=== PATIENT | female | born 1985 | race Caucasian/White ===

== ENCOUNTER 2016-09-30 20:40 | Inpatient (IN) | payer MEDICAID ==
[~2016-09-30] VITALS: Ht 162.6 cm; Wt 58.6 kg
[~2016-09-30 20:40] MED LIST: BACT800T5 PO; LACTCHW3 PO; METR500T10 PO; PROM25TA5 PO
[2016-09-30 20:48] VITALS: PULSE 87; RESP 16; TEMP 98.2; O2SAT 100
[2016-09-30 21:06] VITALS: BP 96/62; PULSE 88; RESP 18; TEMP 98.2
--- NOTE | 2016-09-30 21:06 | PD ---
HPI Chief Complaint: vomiting Time Seen by Provider: 20:58 Travel History International Travel<30 days: No Contact w/Intl Traveler<30days: No Traveled to known affect area: No History of Present Illness HPI This 31-year-old female is complaining of vomiting. She says she started vomiting around midnight last night. And fairly constant since then. She had some loose stools last night. She has had some frequency of urination. She has had persistent retching and did vomit small amount of blood. PFSH Past Medical History Cancer: No Cardiovascular Problems: No Diminished Hearing: No Endocrine: No Genitourinary: Yes (bladder infection) Immune Disorder: No Musculoskeletal: No Neurologic: No Psychiatric: No Reproductive: Yes (HERPES) Respiratory: No Immunizations Current: Yes : 4 Para: 4 Miscarriage: 0 : 0 Tubal Ligation: Yes (DEC 24, 2008) Past Surgical History Section: Yes Other Surgery: Yes (c section) Social History Alcohol Use: No Tobacco Use: Yes (1/2 pk/day) Substance Use: Yes (marijuana) Allergies-Medications (Allergen,Severity, Reaction): Coded Allergies: No Known Allergies (Verified , 09/30/16) Reported Meds & Prescriptions Reported Meds & Active Scripts Active Bactrim DS (Sulfamethoxazole-Trimethoprim DS) 1 Tab Tab 1 Tab PO BID Phenergan 25 mg (Promethazine HCl) 25 Mg Tab 25 Mg PO Q6H PRN Lactinex (Lactobacillus Acidophilus) Chw 1 Chew PO DAILY Metronidazole 500 Mg Tab 500 Mg PO Q8H 10 Days Review of Systems General / Constitutional: Positive: Chills, No: Fever Eyes: No: Diploplia, Blurred Vision HENT: No: Headaches, Vertigo Cardiovascular: No: Chest Pain or Discomfort, Palpitations Respiratory: No: Cough, Shortness of Breath Gastrointestinal: Positive: Nausea, Vomiting, Diarrhea, No: Constipation Genitourinary: Positive: Frequency, Dysuria Musculoskeletal: No: Myalgias, Arthralgias Skin: No Rash, No Itching Neurologic: Positive: Weakness Psychiatric: No: Anxiety Hematologic/Lymphatic: No: Easy Bruising Physical Exam Narrative GENERAL: Well-developed female SKIN: Focused skin assessment warm/dry. HEAD: Atraumatic. Normocephalic. EYES: Pupils equal and round. No scleral icterus. No injection or drainage. ENT: No nasal bleeding or discharge. Mucous membranes dry NECK: Trachea midline. No JVD. CARDIOVASCULAR: Regular rate and rhythm. No murmur appreciated. RESPIRATORY: No accessory muscle use. Clear to auscultation. Breath sounds equal bilaterally. GASTROINTESTINAL: Abdomen soft, non-tender, nondistended. Hepatic and splenic margins not palpable. MUSCULOSKELETAL: No obvious deformities. No clubbing. No cyanosis. No edema. NEUROLOGICAL: Awake and alert. No obvious cranial nerve deficits. Motor grossly within normal limits. Normal speech. PSYCHIATRIC: Appropriate mood and affect; insight and judgment normal. Data Data Last Documented VS Vital Signs Date Time Temp Pulse Resp B/P Pulse Ox O2 Delivery O2 Flow Rate FiO2 09/30/16 22:07 70 16 97/57 99 Room Air 09/30/16 21:06 98.2 Orders Complete Blood Count With Diff (09/30/16 21:04) Comprehensive Metabolic Panel (09/30/16 21:04) Urinalysis - C+S If Indicated (09/30/16 21:04) Sodium Chlor 0.9% 1000 Ml Inj (Ns 1000 M (09/30/16 21:15) Sodium Chlor 0.9% 1000 Ml Inj (Ns 1000 M (09/30/16 21:15) Ondansetron Inj (Zofran Inj) (09/30/16 21:15) Pantoprazole Inj (Protonix Inj) (09/30/16 21:15) Urine Culture (09/30/16 21:25) Ceftriaxone Inj (Rocephin Inj) (09/30/16 22:00) Ns + Kcl Inj (09/30/16 22:30) Labs Laboratory Tests Test 09/30/16 21:25 White Blood Count 8.5 TH/MM3 Red Blood Count 4.00 MIL/MM3 Hemoglobin 12.5 GM/DL Hematocrit 36.9 % Mean Corpuscular Volume 92.2 FL Mean Corpuscular Hemoglobin 31.3 PG Mean Corpuscular Hemoglobin 34.0 % Concent Red Cell Distribution Width 14.7 % Platelet Count 140 TH/MM3 Mean Platelet Volume 10.3 FL Neutrophils (%) (Auto) 81.1 % Lymphocytes (%) (Auto) 10.5 % Monocytes (%) (Auto) 7.7 % Eosinophils (%) (Auto) 0.1 % Basophils (%) (Auto) 0.6 % Neutrophils # (Auto) 6.8 TH/MM3 Lymphocytes # (Auto) 0.9 TH/MM3 Monocytes # (Auto) 0.7 TH/MM3 Eosinophils # (Auto) 0.0 TH/MM3 Basophils # (Auto) 0.1 TH/MM3 CBC Comment DIFF FINAL Differential Comment Urine Color STACIE Urine Turbidity MOD Urine pH 6.5 Urine Specific [place] 1.027 Urine Protein 30 mg/dL Urine Glucose (UA) NEG mg/dL Urine Ketones 15 mg/dL Urine Occult Blood SMALL Urine Nitrite POS Urine Bilirubin NEG Urine Leukocyte Esterase SMALL Urine RBC 0-3 /hpf Urine WBC 50-99 /hpf Urine WBC Clumps OCC Urine Squamous Epithelial 0-5 /hpf Cells Urine Bacteria MANY /hpf Urine Mucus MOD /lpf Microscopic Urinalysis Comment CULTURE INDICATED Sodium Level 141 MEQ/L Potassium Level 2.6 MEQ/L Chloride Level 102 MEQ/L Carbon Dioxide Level 28.8 MEQ/L Anion Gap 10 MEQ/L Blood Urea Nitrogen 6 MG/DL Creatinine 0.87 MG/DL Estimat Glomerular Filtration 77 ML/MIN Rate Random Glucose 94 MG/DL Calcium Level 8.6 MG/DL Total Bilirubin 1.2 MG/DL Aspartate Amino Transf 23 U/L (AST/SGOT) Alanine Aminotransferase 33 U/L (ALT/SGPT) Alkaline Phosphatase 86 U/L Total Protein 6.5 GM/DL Albumin 3.4 GM/DL [facility] Medical Decision Making Medical Screen Exam Complete: Yes Emergency Medical Condition: Yes Medical Record Reviewed: Yes Differential Diagnosis Differential includes acute gastritis, UTI, Narrative Course Patient had a similar presentation about a year ago which was related to a urinary tract infection. Hemoglobin today is 12.5 with a white count of 8.5. Sodium is 141 with potassium of 2.6. Urinalysis shows 50-99 white cells. She has been given 2 L of fluid and Zofran. She is still complaining of nausea. Patient be admitted for observation. She has ongoing nausea with significant UTI and electrolyte imbalance Diagnosis Primary Impression: UTI (urinary tract infection) Qualified Code: N30.00 - Acute cystitis without hematuria Additional Impressions: Hypokalemia Intractable vomiting Qualified Code: R11.2 - Intractable vomiting with nausea, unspecified vomiting type Richy Chao MD Sep 30, 2016 21:06
[2016-09-30] MEDS ORDERED: PANTOPRAZOLE SODIUM 40 MG VIAL IV PUSH ONE (21:15)
[2016-09-30] MEDS ORDERED: ONDANSETRON HCL 4 MG/2 ML VIAL IV PUSH ONE (21:15)
[2016-09-30] MEDS ORDERED: SODIUM CHLOR 0.9% 1000 ML INJ 1,000 ML IV ONE ×2 (21:15)
[2016-09-30 21:42] LABS: BLOOD, URINE SMALL (NEG); GLUCOSE,URINE NEG (NEG); KETONE, URINE 15 mg/dL (NEG); PH, URINE 6.5 (5.0-8.5)
[2016-09-30 21:48] LABS: AUTOMATED NEUTROPHIL # 6.8 TH/MM3 (1.8-7.7); BASOPHIL # 0.1 TH/MM3 (0-0.2); BASOPHIL % 0.6 % (0.0-2.0); EOSINOPHIL % 0.1 % (0.0-4.0); HEMATOCRIT 36.9 % (35.0-46.0); HEMO FLAGS DIFF FINAL; LYMPH % 10.5 % (9.0-44.0); LYMPHOCYTE # 0.9 TH/MM3 (1.0-4.8); MEAN CELL VOLUME 92.2 FL (80.0-100.0); MEAN CORPUSCULAR HEMOGLOBIN 31.3 PG (27.0-34.0); MONO % 7.7 % (0.0-8.0); NEUT % 81.1 % (16.0-70.0); NITRITE,URINE POS (NEG); PLATELET COUNT 140 TH/MM3 (150-450); RED CELL DISTRIBUTION WIDTH 14.7 % (11.6-17.2); WHITE BLOOD COUNT 8.5 TH/MM3 (4.0-11.0)
[2016-09-30 21:49] LABS: URINE COLOR AMBER (YELLW/STRAW)
[2016-09-30 21:50] LABS: MUCUS URINE MOD /lpf (OCC)
[2016-09-30 21:51] LABS: BACTERIA, URINE MANY /hpf; COMMENT (UR) CULTURE INDICATED; CULTURE IF INDICATED CULTURE INDICATED; RBC, URINE 0-3 /hpf (0-3); SQUAMOUS EPITHELIAL CELL URINE 0-5 /hpf (0-5)
[2016-09-30] MEDS ORDERED: cefTRIAXone INJ 1,000 MG in SODIUM CHLORIDE 0.9% INJ 100 ML IV ONE (22:00)
[2016-09-30 22:07] VITALS: BP 97/57; PULSE 70; RESP 16; O2SAT 99
[2016-09-30 22:11] LABS: ALKALINE PHOSPHATASE 86 U/L (45-117); ALT (GPT) 33 U/L (10-53); ANION GAP 10 MEQ/L (5-15); AST (GOT) 23 U/L (15-37); BICARBONATE 28.8 MEQ/L (21.0-32.0); BLOOD UREA NITROGEN 6 MG/DL (7-18); CHLORIDE 102 MEQ/L (98-107); GLOMERULAR FILTRATION RATE 77 ML/MIN (>89); SODIUM (NA) 141 MEQ/L (136-145); TOTAL BILIRUBIN ADULT 1.2 MG/DL (0.2-1.0)
[2016-09-30 22:15] LABS: POTASSIUM 2.6 MEQ/L (3.5-5.1)
[2016-09-30] MEDS ORDERED: PROCHLORPERAZINE INJ 10 MG/2 ML VIAL IV PUSH ONE (22:30)
[2016-09-30] MEDS ORDERED: SODIUM CHLORIDE 0.9% FLUSH 10 ML FLUSH IV FLUSH PRN (22:30)
[2016-09-30] MEDS ORDERED: LACTULOSE SYRUP 20 GM/30 ML CUP PO PRN (22:30)
[2016-09-30] MEDS ORDERED: NS + KCL 40 MEQ INJ 1,000 ML IV ONE (22:30)
[2016-09-30] MEDS ORDERED: MAGNESIUM HYDROXIDE SUSP 30 ML CUP PO PRN (22:30)
[2016-09-30] MEDS ORDERED: NALOXONE HCL 0.4 MG/ML AMP IV PRN (22:30)
[2016-09-30] MEDS ORDERED: BISACODYL 10 MG SUPP RECTAL PRN (22:30)
[2016-09-30] MEDS ORDERED: ACETAMINOPHEN 325 MG TAB PO PRN (22:30)
[2016-09-30] MEDS ORDERED: SENNOSIDES 8.6 MG TAB PO PRN (22:30)
[2016-09-30 23:10] VITALS: BP 94/49; PULSE 63; RESP 16; O2SAT 97
[2016-10-01] VITALS (8 sets, daily range): BP systolic 92–121; BP diastolic 48–68; PULSE 46–72; RESP 16–20; TEMP 97.8–98.7; O2SAT 95–100
[2016-10-01 06:56] LABS: BICARBONATE 30.6 MEQ/L (21.0-32.0); MAGNESIUM 1.6 MG/DL (1.5-2.5); POTASSIUM 3.4 MEQ/L (3.5-5.1)
[2016-10-01 07:10] LABS: CALCIUM-PROTEIN CORRECTED 8.6 MG/DL (8.5-10.1)
--- NOTE | 2016-10-01 08:12 | HHI.HP ---
[facility] No Primary Care Physician Admission Diagnosis UTI, HYPOKALEMIA, INTRACTABLE VOMITING Diagnoses: (1) Nausea & vomiting Diagnosis: Principal (2) Hypokalemia Diagnosis: Principal (3) Urinary tract infection Diagnosis: Principal Chief Complaint: Nausea vomiting Travel History International Travel<30 Days: No Contact w/Intl Traveler <30 Da: No Traveled to Known Affected Are: No History of Present Illness Written by Colt Kinney, acting as scribe for Dr. Alicia on 10/01/16 at 8: 30. This note was transcribed by scribAkira MCGILL. I, Dr. Darlin Alicia personally performed the history, physical exam, and medical decision making; and confirmed the accuracy of the information in the transcribed note. Authenticated by Dr. Darlin Alicia on 10/01/16 at 8:30. 31-year-old female with no chronic medical illnesses who presented to hospital because of intractable nausea vomiting. Patient is known to the hospital for previous admission for same condition a year ago. 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 She went out Saturday night to a concert and she had 3 alcoholic beverages and then at midnight she started having nausea vomiting and she left the concert and went home. She had intractable nausea vomiting was unable to keep anything down so she came to the hospital for evaluation. Patient had workup done emergency department and found to have urinary tract infection, hypokalemia with intractable nausea vomiting. It was requested by ER physician the patient be admitted for further evaluation and management. Upon evaluating the patient this morning she appears to be improved, she is drinking water and abner maya and has not had any recurrent vomiting since 1:30 AM. Review of Systems Gastrointestinal: COMPLAINS OF: Nausea, Vomiting Except as stated in HPI: all other systems reviewed are Neg Past Family Social History Past Medical History History of cystitis Marijuana abuse Past Surgical History 2 Tubal ligation Reported Medications Patient is not taking any outpatient medications Allergies: Coded Allergies: No Known Allergies (Verified , 09/30/16) Family History Reviewed is significant for grandmother having breast cancer, grandfather with lung cancer. Social History Patient does smoke a half a pack a cigarettes a day since she was 21 years old. She does smoke marijuana every other day. She does drink alcohol occasionally. Physical Exam Vital Signs Vital Signs Date Time Temp Pulse Resp B/P Pulse Ox O2 Delivery O2 Flow Rate FiO2 10/01/16 04:00 97.8 58 18 92/56 98 10/01/16 02:33 98.7 72 18 101/59 100 10/01/16 01:57 97.8 71 18 97/60 98 10/01/16 00:20 63 16 100/48 96 Room Air 09/30/16 23:10 63 16 94/49 97 Room Air 09/30/16 22:07 70 16 97/57 99 Room Air 09/30/16 21:10 16 09/30/16 21:06 98.2 88 18 96/62 09/30/16 20:48 98.2 87 16 100 Physical Exam GENERAL: Well-developed, well-nourished, in no acute distress. alert and orientated HEENT: Head is normocephalic without any lesions or masses noted. Facial features are symmetric. Eyes: Pupils equal round reactive to light. Extraocular muscles are intact. Conjunctivae were clear. Oropharyngeal: Pharynx without any erythema edema. Tongue is midline without deviation. Buccal mucosa is moist without any masses or lesions NECK: Supple without any masses. Trachea midline no deviation. No JVD, no bruits are appreciated CARDIAC: Regular rhythm, regular rate. S1/S2 are heard. No murmurs gallops or rubs. LUNGS: Clear to auscultation bilaterally. No wheeze, rhonchi or rales. No use of accessory muscles on inspiration or expiration. ABDOMEN: Soft, nontender. Nondistended. Bowel sounds heard in all 4 quadrants. No organomegaly or masses. Negative rebound, negative guarding EXTREMITIES: No edema, pulses are equal bilaterally. No cyanosis or clubbing NEUROLOGY: Mood and affect appear appropriate. Cranial nerves II through XII grossly intact. Muscle strength 5/5 in upper and lower extremities bilaterally. Deep tendon reflexes are 2+ in upper and lower extremities bilaterally. Laboratory Laboratory Tests Test 09/30/16 10/01/16 21:25 05:30 White Blood Count 8.5 Red Blood Count 4.00 Hemoglobin 12.5 Hematocrit 36.9 Mean Corpuscular Volume 92.2 Mean Corpuscular Hemoglobin 31.3 Mean Corpuscular Hemoglobin 34.0 Concent Red Cell Distribution Width 14.7 Platelet Count 140 Mean Platelet Volume 10.3 Neutrophils (%) (Auto) 81.1 Lymphocytes (%) (Auto) 10.5 Monocytes (%) (Auto) 7.7 Eosinophils (%) (Auto) 0.1 Basophils (%) (Auto) 0.6 Neutrophils # (Auto) 6.8 Lymphocytes # (Auto) 0.9 Monocytes # (Auto) 0.7 Eosinophils # (Auto) 0.0 Basophils # (Auto) 0.1 CBC Comment DIFF FINAL Differential Comment Urine Color STACIE Urine Turbidity MOD Urine pH 6.5 Urine Specific [place] 1.027 Urine Protein 30 Urine Glucose (UA) NEG Urine Ketones 15 Urine Occult Blood SMALL Urine Nitrite POS Urine Bilirubin NEG Urine Leukocyte Esterase SMALL Urine RBC 0-3 Urine WBC 50-99 Urine WBC Clumps OCC Urine Squamous Epithelial 0-5 Cells Urine Bacteria MANY Urine Mucus MOD Microscopic Urinalysis Comment CULTURE INDICATED Sodium Level 141 148 Potassium Level 2.6 3.4 Chloride Level 102 111 Carbon Dioxide Level 28.8 30.6 Anion Gap 10 6 Blood Urea Nitrogen 6 6 Creatinine 0.87 0.75 Estimat Glomerular Filtration 77 91 Rate Random Glucose 94 88 Calcium Level 8.6 7.4 Total Bilirubin 1.2 Aspartate Amino Transf 23 (AST/SGOT) Alanine Aminotransferase 33 (ALT/SGPT) Alkaline Phosphatase 86 Total Protein 6.5 5.0 Albumin 3.4 Protein Corrected Calcium 8.6 Magnesium Level 1.6 Date/Time Procedure Status Source Growth 09/30/16 21:25 Urine Culture Received Urine Clean Catch Pending Result Diagram: 09/30/16212410/01/16 3877 Assessment and Plan Assessment and Plan Nausea, vomiting, intractable Etiology unclear, could be secondary to systemic infection, marijuana use Continue IV fluids Continue Zofran, Reglan as needed Continue clear liquid diet, advance diet as tolerated Urinary tract infection Await cultures for further recommendations Patient started on Rocephin IV daily Hypokalemia, secondary from GI loss continue monitor replete as needed Thrombocytopenia, appears to be chronic Continue to monitor DVT prevention Sequential compression devices Physician Certification 2 Midnight Certification Type: Admission for Inpatient Services Order for Inpatient Services The services are ordered in accordance with Medicare regulations or non- Medicare payer requirements, as applicable. In the case of services not specified as inpatient-only, they are appropriately provided as inpatient services in accordance with the 2-midnight benchmark. Estimated LOS (days): 2 days is the estimated time the patient will need to remain in the hospital, assuming treatment plan goals are met and no additional complications. Post-Hospital Plan: Not yet determined Problem Qualifiers (1) Nausea & vomiting: Qualified Code: R11.2 - Intractable vomiting with nausea, unspecified vomiting type (2) Urinary tract infection: Colt Kinney Oct 01, 2016 08:12 Darlin Alicia MD Oct 01, 2016 08:30
[2016-10-01] MEDS ORDERED: MAGNESIUM SULFATE 1 GM PREMIX 100 ML IV ONE (09:00)
[2016-10-01] MEDS: SODIUM CHLORIDE 0.9% FLUSH 10 ML FLUSH IV FLUSH SCH ×2 (09:16→21:31)
[2016-10-01] MEDS: NS + KCL 20 MEQ INJ 1,000 ML IV SCH ×2 (09:17→21:31)
[2016-10-01] MEDS: METOCLOPRAMIDE HCL 10 MG/2 ML VIAL IV PUSH PRN (11:33)
[2016-10-01] MEDS: PROMETHAZINE INJ 25 MG/ML VIAL IM PRN (13:26)
[2016-10-01] MEDS: NICOTINE 21 MG/24 HR PATCH T-DERMAL SCH (16:57)
[2016-10-01 18:24] LABS: BICARBONATE 30.5 MEQ/L (21.0-32.0)
[2016-10-01 18:53] LABS: CALCIUM-PROTEIN CORRECTED 8.5 MG/DL (8.5-10.1)
[2016-10-01] MEDS: cefTRIAXone INJ 1,000 MG in SODIUM CHLORIDE 0.9% INJ 100 ML IV SCH (21:31)
[2016-10-02] VITALS: BP 125/70; PULSE 42; RESP 20; TEMP 98.3; O2SAT 99
[2016-10-02] MEDS: METOCLOPRAMIDE HCL 10 MG/2 ML VIAL IV PUSH PRN (02:35)
[2016-10-02] MEDS: ONDANSETRON HCL 4 MG/2 ML VIAL IVP PRN ×2 (03:09→09:33)
[2016-10-02] MEDS ORDERED: MORPHINE SULFATE 8 MG/ML INJ IV PUSH ONE (03:15)
[2016-10-02] MEDS: PROMETHAZINE INJ 25 MG/ML VIAL IM PRN ×3 (03:55→22:48)
[2016-10-02 08:00] VITALS: BP 115/65; PULSE 52; RESP 18; TEMP 99.2; O2SAT 100
[2016-10-02 08:47] LABS: AUTOMATED NEUTROPHIL # 8.3 TH/MM3 (1.8-7.7); BASOPHIL # 0.2 TH/MM3 (0-0.2); BASOPHIL % 1.8 % (0.0-2.0); EOSINOPHIL % 0.1 % (0.0-4.0); HEMATOCRIT 33.5 % (35.0-46.0); HEMO FLAGS DIFF FINAL; LYMPH % 5.4 % (9.0-44.0); LYMPHOCYTE # 0.5 TH/MM3 (1.0-4.8); MEAN CELL VOLUME 92.9 FL (80.0-100.0); MEAN CORPUSCULAR HEMOGLOBIN 30.1 PG (27.0-34.0); MEAN CORPUSCULAR HGB CONC 32.4 % (32.0-36.0); MONO % 1.2 % (0.0-8.0); NEUT % 91.5 % (16.0-70.0); PLATELET COUNT 114 TH/MM3 (150-450); RED BLOOD COUNT 3.61 MIL/MM3 (4.00-5.30); RED CELL DISTRIBUTION WIDTH 14.8 % (11.6-17.2); WHITE BLOOD COUNT 9.1 TH/MM3 (4.0-11.0)
[2016-10-02] MEDS: NS + KCL 20 MEQ INJ 1,000 ML IV SCH ×2 (08:50→21:50)
[2016-10-02 09:00] LABS: BICARBONATE 27.9 MEQ/L (21.0-32.0); MAGNESIUM 1.6 MG/DL (1.5-2.5)
[2016-10-02] MEDS: REMOVE OLD PATCH T-DERMAL SCH (09:00)
[2016-10-02 09:06] LABS: POTASSIUM 2.8 MEQ/L (3.5-5.1)
[2016-10-02] MEDS: NICOTINE 21 MG/24 HR PATCH T-DERMAL SCH (09:33)
[2016-10-02] MEDS: SODIUM CHLORIDE 0.9% FLUSH 10 ML FLUSH IV FLUSH SCH ×2 (09:34→21:50)
[2016-10-02] MEDS: MAGNESIUM SULFATE 1 GM PREMIX 100 ML IV SCH ×2 (09:41→11:00)
[2016-10-02] MEDS: POTASSIUM CHLOR 20 MEQ PREMIX 100 ML IV SCH ×3 (10:05→14:00)
--- NOTE | 2016-10-02 10:17 | HHI.PR ---
Subjective Remarks Patient is not able to keep anything down, even small sips of water. She has intractable nausea and vomiting. Says emesis is clear /yellow no blood in it. Has chills, no fevers. Has associated diffuse abdominal pain. Had 2 normal BM today, no diarrhea or constipation, normal color stool. No urinary complaints. Objective Vitals Vital Signs Date Time Temp Pulse Resp B/P Pulse Ox O2 Delivery O2 Flow Rate FiO2 10/02/16 08:00 99.2 52 18 115/65 100 10/02/16 00:00 98.3 42 20 125/70 99 10/01/16 20:00 97.8 61 20 121/58 98 10/01/16 16:00 98.6 62 18 101/68 95 10/01/16 12:00 98.6 46 18 96/64 98 I/O 10/01/16 10/01/16 10/01/16 10/02/16 10/02/16 10/02/16 07:00 15:00 23:00 07:00 15:00 23:00 Intake Total 2150 ml 460 ml 240 ml 892 ml Output Total 0 ml Balance 2150 ml 460 ml 240 ml 892 ml Intake Oral 50 ml 360 ml 240 ml 120 ml IV Total 2100 ml 100 ml 772 ml Output Urine Total 0 ml # Voids 2 1 1 # Bowel Movements 0 Result Diagram: 10/02/1683410/02/1635 Objective Remarks GENERAL: Well-developed, well-nourished, in no acute distress. alert and orientated CARDIAC: Regular rhythm, regular rate. S1/S2 are heard. No murmurs gallops or rubs. LUNGS: Clear to auscultation bilaterally. No wheeze, rhonchi or rales. No use of accessory muscles on inspiration or expiration. ABDOMEN: Soft, nontender. Nondistended. Bowel sounds heard in all 4 quadrants. No organomegaly or masses. Negative rebound, negative guarding EXTREMITIES: No edema, pulses are equal bilaterally. No cyanosis or clubbing NEUROLOGY: Mood and affect appear appropriate. Cranial nerves II through XII grossly intact. Muscle strength 5/5 in upper and lower extremities bilaterally. Deep tendon reflexes are 2+ in upper and lower extremities bilaterally. A/P Problem List: (1) Nausea & vomiting ICD Code: R11.2 Status: Acute (2) Hypokalemia ICD Code: E87.6 Status: Acute (3) Urinary tract infection ICD Code: N39.0 Status: Acute Assessment and Plan Nausea, vomiting, intractable Etiology unclear, could be secondary to systemic infection, marijuana use Continue IV fluids Continue Zofran, Reglan, Phenergan as needed Continue clear liquid diet, advance diet as tolerated Consult GI as patient with persistent N/V not relived by antiemetics so far. Urinary tract infection Await cultures for further recommendations Patient started on Rocephin IV daily Hypokalemia, secondary from GI loss Continue monitor replete as needed Thrombocytopenia, appears to be chronic Continue to monitor DVT prevention Sequential compression devices Discussed with the patient, nurse, family at bedside Problem Qualifiers (1) Nausea & vomiting: Qualified Code: R11.2 - Intractable vomiting with nausea, unspecified vomiting type (2) Urinary tract infection: Darlin Alicia MD Oct 02, 2016 10:16
[2016-10-02 12:00] VITALS: BP 129/84; PULSE 54; RESP 16; TEMP 99.6; O2SAT 100
[2016-10-02] MEDS ORDERED: METOCLOPRAMIDE HCL 10 MG/2 ML VIAL IV PUSH PRN (12:00)
[2016-10-02 16:00] VITALS: BP 115/72; PULSE 61; RESP 16; TEMP 100.1; O2SAT 100
[2016-10-02] MEDS ORDERED: MAGNESIUM SULFATE 1 GM PREMIX 100 ML IV SCH (18:00)
[2016-10-02 20:00] VITALS: BP 137/93; PULSE 73; RESP 18; TEMP 99.8; O2SAT 100
[2016-10-02] MEDS: cefTRIAXone INJ 1,000 MG in SODIUM CHLORIDE 0.9% INJ 100 ML IV SCH (21:50)
[2016-10-03] VITALS: BP 130/73; PULSE 77; RESP 16; TEMP 99.4; O2SAT 99
[2016-10-03 04:00] VITALS: BP 123/85; PULSE 62; RESP 18; TEMP 99.2; O2SAT 99
[2016-10-03] MEDS: PROMETHAZINE INJ 25 MG/ML VIAL IM PRN ×3 (05:04→18:45)
[2016-10-03 06:10] LABS: AUTOMATED NEUTROPHIL # 5.5 TH/MM3 (1.8-7.7); BASOPHIL % 0.4 % (0.0-2.0); EOSINOPHIL % 0.7 % (0.0-4.0); HEMATOCRIT 35.4 % (35.0-46.0); HEMO FLAGS DIFF FINAL; LYMPH % 18.2 % (9.0-44.0); LYMPHOCYTE # 1.3 TH/MM3 (1.0-4.8); MEAN CELL VOLUME 95.9 FL (80.0-100.0); MEAN CORPUSCULAR HGB CONC 32.4 % (32.0-36.0); MONO % 4.8 % (0.0-8.0); NEUT % 75.9 % (16.0-70.0); PLATELET COUNT 112 TH/MM3 (150-450); RED BLOOD COUNT 3.69 MIL/MM3 (4.00-5.30); RED CELL DISTRIBUTION WIDTH 14.6 % (11.6-17.2); WHITE BLOOD COUNT 7.1 TH/MM3 (4.0-11.0)
[2016-10-03 06:14] LABS: POTASSIUM 3.1 MEQ/L (3.5-5.1)
[2016-10-03 06:17] LABS: BICARBONATE 29.2 MEQ/L (21.0-32.0); MAGNESIUM 2.1 MG/DL (1.5-2.5)
--- NOTE | 2016-10-03 07:54 | HHI.PR ---
Subjective Remarks Still with intractable nausea and vomiting multiple times, not able to keep anything down. Has associated chills no fever. Has also loose stools. Complaints of abdominal pain , diffuse. No problems with urination. Objective Vitals Vital Signs Date Time Temp Pulse Resp B/P Pulse Ox O2 Delivery O2 Flow Rate FiO2 10/03/16 04:00 99.2 62 18 123/85 99 10/03/16 00:00 99.4 77 16 130/73 99 10/02/16 20:00 99.8 73 18 137/93 100 10/02/16 16:00 100.1 61 16 115/72 100 10/02/16 12:00 99.6 54 16 129/84 100 10/02/16 08:00 99.2 52 18 115/65 100 I/O 10/02/16 10/02/16 10/02/16 10/03/16 10/03/16 10/03/16 07:00 15:00 23:00 07:00 15:00 23:00 Intake Total 892 ml 2696 ml 280 ml 772 ml Output Total 750 ml Balance 892 ml 1946 ml 280 ml 772 ml Intake Oral 120 ml 60 ml 280 ml IV Total 772 ml 2636 ml 772 ml Emesis 750 ml # Voids 1 1 1 # Bowel Movements 0 Result Diagram: 10/03/1635 10/03/16534 Objective Remarks GENERAL: Well-developed, well-nourished, in no acute distress. alert and orientated CARDIAC: Regular rhythm, regular rate. S1/S2 are heard. No murmurs gallops or rubs. LUNGS: Clear to auscultation bilaterally. No wheeze, rhonchi or rales. No use of accessory muscles on inspiration or expiration. ABDOMEN: Soft, nontender. Nondistended. Bowel sounds heard in all 4 quadrants. No organomegaly or masses. Negative rebound, negative guarding EXTREMITIES: No edema, pulses are equal bilaterally. No cyanosis or clubbing NEUROLOGY: Mood and affect appear appropriate. Cranial nerves II through XII grossly intact. Muscle strength 5/5 in upper and lower extremities bilaterally. Deep tendon reflexes are 2+ in upper and lower extremities bilaterally. A/P Problem List: (1) Nausea & vomiting ICD Code: R11.2 Status: Acute (2) Hypokalemia ICD Code: E87.6 Status: Acute (3) Urinary tract infection ICD Code: N39.0 Status: Acute Assessment and Plan Nausea, vomiting, intractable Abdominal pain Etiology unclear, could be secondary to systemic infection, marijuana use Continue IV fluids. Patient with intractable nausea and vomiting, severe electrolytes abnormalities. On 0.9 NS with KCL 20 mEq, monitor closely electrolytes. Continue Zofran, Reglan, Phenergan as needed Continue clear liquid diet, advance diet as tolerated Start IV dilaudid 0.5 mg q4 hrs prn as patient with abdominal pain . GI was consulted as patient with persistent N/V not relived by antiemetics so far. GI recommends poss EGD Give piridoxine IV viatamin Urinary tract infection. E coli resistant to cipro Await cultures for further recommendations Patient on Rocephin IV daily Hypokalemia, secondary from GI loss, persistent hypokalemia dispite NS with KCl . Will give additional bolus IV KCl 40 mEq Continue monitor replete as needed Thrombocytopenia, appears to be chronic Continue to monitor DVT prevention Sequential compression devices Discussed with the patient, nurse, family at bedside Problem Qualifiers (1) Nausea & vomiting: Qualified Code: R11.2 - Intractable vomiting with nausea, unspecified vomiting type (2) Urinary tract infection: Darlin Alicia MD Oct 03, 2016 07:54
[2016-10-03 08:00] VITALS: BP 116/83; PULSE 86; RESP 16; TEMP 99.4; O2SAT 96
[2016-10-03] MEDS ORDERED: MAGNESIUM OXIDE 400 MG TAB PO ONE (08:00)
[2016-10-03] MEDS: NICOTINE 21 MG/24 HR PATCH T-DERMAL SCH (08:24)
[2016-10-03] MEDS: SODIUM CHLORIDE 0.9% FLUSH 10 ML FLUSH IV FLUSH SCH ×2 (08:31→21:00)
[2016-10-03] MEDS: REMOVE OLD PATCH T-DERMAL SCH (08:31)
[2016-10-03] MEDS: NS + KCL 20 MEQ INJ 1,000 ML IV SCH ×2 (08:32→20:35)
[2016-10-03] MEDS: CALCIUM CARBONATE 500 MG CHEWABLE TAB CHEW SCH ×2 (09:11→21:00)
[2016-10-03] MEDS: POTASSIUM CHLOR 20 MEQ PREMIX 100 ML IV SCH ×2 (09:11→11:18)
[2016-10-03] MEDS: MAGNESIUM OXIDE 400 MG TAB PO SCH (09:13)
[2016-10-03] MEDS: SODIUM CHLOR 0.9% 1000 ML INJ 1,000 ML IV SCH ×2 (11:18→22:10)
[2016-10-03] MEDS ORDERED: PYRIDOXINE HCL 100 MG/ML VIAL IV ONE ×2 (14:15→17:00)
[2016-10-03] MEDS: ONDANSETRON HCL 4 MG/2 ML VIAL IVP PRN (14:50)
[2016-10-03] MEDS: HYDROmorphone HCL PF 1 MG/ML VIAL IV PUSH PRN ×2 (14:50→19:00)
[2016-10-03 16:00] VITALS: BP 122/82; PULSE 82; RESP 16; TEMP 98; O2SAT 98
[2016-10-03] MEDS ORDERED: LIDOCAINE VISCOUS 2% SOLN 15 ML UDC SWISH-SPIT PRN (17:45)
[2016-10-03 20:00] VITALS: BP 127/89; PULSE 69; RESP 18; TEMP 98.5; O2SAT 98
[2016-10-03] MEDS: SUCRALFATE 1 GM/10 ML CUP PO SCH (21:00)
[2016-10-03] MEDS: cefTRIAXone INJ 1,000 MG in SODIUM CHLORIDE 0.9% INJ 100 ML IV SCH ×2 (22:00→22:52)
[2016-10-04] VITALS: BP 124/70; PULSE 68; RESP 16; TEMP 99; O2SAT 97
[2016-10-04] MEDS: PROMETHAZINE INJ 25 MG/ML VIAL IM PRN ×3 (01:34→21:28)
[2016-10-04] MEDS: HYDROmorphone HCL PF 1 MG/ML VIAL IV PUSH PRN ×4 (01:44→21:27)
[2016-10-04 04:00] VITALS: BP 112/79; PULSE 67; RESP 16; TEMP 98.4; O2SAT 96
[2016-10-04 06:08] LABS: AUTOMATED NEUTROPHIL # 3.1 TH/MM3 (1.8-7.7); BASOPHIL % 0.8 % (0.0-2.0); EOSINOPHIL # 0.1 TH/MM3 (0-0.4); EOSINOPHIL % 1.6 % (0.0-4.0); HEMATOCRIT 31.5 % (35.0-46.0); HEMO FLAGS DIFF FINAL; LYMPH % 34.1 % (9.0-44.0); LYMPHOCYTE # 1.8 TH/MM3 (1.0-4.8); MEAN CORPUSCULAR HEMOGLOBIN 31.5 PG (27.0-34.0); MEAN CORPUSCULAR HGB CONC 33.5 % (32.0-36.0); MONO % 6.3 % (0.0-8.0); NEUT % 57.2 % (16.0-70.0); PLATELET COUNT 108 TH/MM3 (150-450); RED BLOOD COUNT 3.35 MIL/MM3 (4.00-5.30); RED CELL DISTRIBUTION WIDTH 14.1 % (11.6-17.2); WHITE BLOOD COUNT 5.3 TH/MM3 (4.0-11.0)
[2016-10-04 06:18] LABS: POTASSIUM 3.3 MEQ/L (3.5-5.1)
[2016-10-04] MEDS: SUCRALFATE 1 GM/10 ML CUP PO SCH ×4 (06:26→21:00)
[2016-10-04 06:27] LABS: BICARBONATE 28.2 MEQ/L (21.0-32.0); MAGNESIUM 1.9 MG/DL (1.5-2.5)
[2016-10-04 06:32] LABS: INDIRECT BILIRUBIN 0.6 MG/DL (0.0-0.8); TOTAL BILIRUBIN ADULT 0.7 MG/DL (0.2-1.0)
--- NOTE | 2016-10-04 07:36 | MB ---
cc: FABIENNE ARSHAD M.D. DATE OF CONSULTATION 10/03/2016 DATE OF 06/03/1995 REASON FOR CONSULTATION Recurrent nausea and vomiting. HISTORY The patient was seen earlier in the day today. Ms. Gallo is a 31-year-old lady with no major medical problems who came to the emergency room with complaints of nausea and vomiting. She was found to have a urinary tract infection. The patient is complaining of odynophagia, dysphagia after nausea and vomiting, increased reflux, decreased appetite. Also, she reports having some diarrhea since her admission to the hospital. She said she had some rectal bleed on and off at home too, but not currently. According to her, she did have an endoscopy some time ago and apparently everything was normal. She does have some weight loss since her admission. Overall, she is a quite poor historian. She states since her admission to the hospital, she is unable even to keep the water down. PAST MEDICAL HISTORY Cystitis PAST SURGICAL HISTORY 1. 2. Tubal radiation ALLERGIES No known allergies. FAMILY HISTORY Grandfather had lung cancer. Grandmother had breast cancer. SOCIAL HISTORY Smokes a half pack of cigarettes daily. Smokes marijuana every day. Drinks alcohol occasionally. MEDICATIONS Currently in the hospital, she was put on: 1. Dilaudid 2. Magnesium oxide 3. Reglan 4. Ceftriaxone 5. Phenergan 6. Habitrol 7. Potassium chloride 8. Zofran 9. Milk of Magnesia as needed 10. Dulcolax as needed p.r.n. 11. Vitamin B6 REVIEW OF SYSTEMS On review of systems she did have fever or chills. ENT: She does have some sore throat. PULMONARY: Denies any chest pain or shortness of breath. GASTROINTESTINAL: As above. GENITOURINARY: Denies dysuria, hematuria. HEMATOLOGIC: No history of anemia or bleeding disorder. SKIN: No alteration in baseline skin lesion. NEUROLOGIC: No history of TIA or CVA kind of symptoms. PHYSICAL EXAM Clinical exam, she is sitting comfortably in bed in no acute distress. VITAL SIGNS: Her temperature is 99.4, pulse 86, respirations 16, blood pressure 116/83, pulse of 96. HEAD, EYES, EARS, NOSE, AND THROAT: HALLE. NECK: No JVD. No lymphadenopathy. CHEST: Clear to the auscultation and palpation. CARDIOVASCULAR: S1 and S2. No murmur. ABDOMEN: Soft and nontender. Bowel sounds are present. DRUMS TEACHER: Awake, alert, and oriented x3. No focal signs identified. LABORATORY DATA Her white count 7.1, hemoglobin 11.5, platelets 112. PT/INR not done at this time. Her potassium was 2.8 on admission. Her liver enzymes were normal. The patient had a CT abdomen and pelvis a year ago and that was suggestive hepatic steatosis and bladder wall thickening anteriorly. She also had an esophageal E x-ray done year last year which showed no extravasation. She had a previous CT in April 2005 which was suggestive of diffuse thickening of the urinary bladder likely cystitis 2.5 cm cyst in the right adnexa, mild fatty infiltration. A CT chest done the same time showed normal mediastinum, subcutaneous left chest. She had a neck CT which showed extensive soft tissue emphysema cause unclear. Had a renal ultrasound the same time and showed diffuse bladder thickening and cystitis. IMPRESSION 1. Nausea and vomiting most likely triggered by a urinary tract infection, improving at this time. 2. Possible gastroparesis. 3. Diarrhea possibly secondary to antibiotics. 4. History of rectal bleed not recently may indicate the presence of hemorrhoids or colitis. 5. History of normal mediastinum a year ago, unclear cause. possible secondary to nausea and vomiting. 6. Recurrent UTIs RECOMMENDATIONS 1. Advance diet as tolerated. 2. Stool for ova and parasites. 3. Cultures for C. Diff. 4. Carafate Lidocaine liquid 5. May benefit from an upper endoscopy and colonoscopy once urinary tract infection is resolved. This can be done as an Outpatient. 6. Avoid drinking and cannabis use. I would like to thank Dr. Alicia for referring her to our office for consultation. Thank you again, we will continue to follow the patient along with you. MD ANTONIO Goode/IRLANDA /5:33 PM /7:24 AM
[2016-10-04 08:00] VITALS: BP 106/71; PULSE 62; RESP 16; TEMP 98.3; O2SAT 96
[2016-10-04] MEDS: PYRIDOXINE HCL 100 MG/ML VIAL IV SCH (08:59)
[2016-10-04] MEDS: REMOVE OLD PATCH T-DERMAL SCH (09:00)
[2016-10-04] MEDS: NICOTINE 21 MG/24 HR PATCH T-DERMAL SCH (09:05)
[2016-10-04] MEDS: MAGNESIUM OXIDE 400 MG TAB PO SCH (09:05)
[2016-10-04] MEDS: CALCIUM CARBONATE 500 MG CHEWABLE TAB CHEW SCH ×2 (09:05→21:00)
[2016-10-04] MEDS: SODIUM CHLORIDE 0.9% FLUSH 10 ML FLUSH IV FLUSH SCH ×2 (09:06→21:00)
[2016-10-04] MEDS: NS + KCL 20 MEQ INJ 1,000 ML IV SCH ×2 (09:08→20:25)
[2016-10-04 12:00] VITALS: BP 104/68; PULSE 75; RESP 16; TEMP 98; O2SAT 100
[2016-10-04] MEDS: ONDANSETRON HCL 4 MG/2 ML VIAL IVP PRN (15:28)
[2016-10-04 16:00] VITALS: BP 110/66; PULSE 72; RESP 16; TEMP 98; O2SAT 98
[2016-10-04 19:47] LABS: C. DIFF EPI 027 PRESUMPTIVE NEGATIVE (NEGATIVE); C. DIFF TOXIN PCR NEGATIVE (NEGATIVE)
[2016-10-04 20:00] VITALS: BP 128/86; PULSE 68; RESP 16; TEMP 99; O2SAT 98
[2016-10-04] MEDS: cefTRIAXone INJ 1,000 MG in SODIUM CHLORIDE 0.9% INJ 100 ML IV SCH (22:42)
[2016-10-05] VITALS: BP 124/77; PULSE 65; RESP 18; TEMP 97.9; O2SAT 100
[2016-10-05] MEDS: NS + KCL 20 MEQ INJ 1,000 ML IV SCH (03:48)
[2016-10-05 04:00] VITALS: BP 133/86; PULSE 66; RESP 16; TEMP 97.7; O2SAT 98
[2016-10-05] MEDS: SUCRALFATE 1 GM/10 ML CUP PO SCH ×2 (06:14→09:40)
[2016-10-05] MEDS: HYDROmorphone HCL PF 1 MG/ML VIAL IV PUSH PRN (06:27)
[2016-10-05] MEDS: ONDANSETRON HCL 4 MG/2 ML VIAL IV PUSH PRN ×2 (06:32→13:15)
[2016-10-05 08:00] VITALS: BP 115/77; PULSE 70; RESP 16; TEMP 98; O2SAT 97
--- NOTE | 2016-10-05 08:06 | HHI.PR ---
Subjective Remarks Feels much better. Patient went to EGD. Says she feels improved and wants to try to eat regular food. no more nausea. No more vomiting, Still with some pain. No fever or chills She did not have diarrhea. Objective Vitals Vital Signs Date Time Temp Pulse Resp B/P Pulse Ox O2 Delivery O2 Flow Rate FiO2 10/05/16 04:00 97.7 66 16 133/86 98 10/05/16 00:00 97.9 65 18 124/77 100 10/04/16 21:57 16 10/04/16 20:00 99.0 68 16 128/86 98 10/04/16 16:00 98.0 72 16 110/66 98 10/04/16 12:00 98.0 75 16 104/68 100 I/O 10/04/16 10/04/16 10/04/16 10/05/16 10/05/16 10/05/16 07:00 15:00 23:00 07:00 15:00 23:00 Intake Total 2496 ml 580 ml 480 ml Output Total 500 ml 600 ml Balance 1996 ml -20 ml 480 ml Intake Oral 480 ml 580 ml 480 ml IV Total 2016 ml Output Urine Total 500 ml 600 ml # Voids 3 2 # Bowel Movements 0 0 0 Result Diagram: 10/04/16 0505 10/04/16 0505 Imaging Last Impressions Abdomen Ultrasound 10/05/16 0000 Signed Impressions: Service Date/Time: Wednesday, October 05, 2016 08:14 - CONCLUSION: 1. Probable fatty infiltration of the liver with focal fatty sparing adjacent to the gallbladder fossa. 2. Small amount of sludge in the dependent portion of the gallbladder. No stones are seen. The gallbladder wall is at the upper limits of normal in thickness. Gino Rivas MD Objective Remarks GENERAL: Well-developed, well-nourished, in no acute distress. alert and orientated CARDIAC: Regular rhythm, regular rate. S1/S2 are heard. No murmurs gallops or rubs. LUNGS: Clear to auscultation bilaterally. No wheeze, rhonchi or rales. No use of accessory muscles on inspiration or expiration. ABDOMEN: Soft, nontender. Nondistended. Bowel sounds heard in all 4 quadrants. No organomegaly or masses. Negative rebound, negative guarding EXTREMITIES: No edema, pulses are equal bilaterally. No cyanosis or clubbing NEUROLOGY: Mood and affect appear appropriate. Cranial nerves II through XII grossly intact. Muscle strength 5/5 in upper and lower extremities bilaterally. Deep tendon reflexes are 2+ in upper and lower extremities bilaterally. A/P Problem List: (1) Nausea & vomiting ICD Code: R11.2 Status: Acute (2) Hypokalemia ICD Code: E87.6 Status: Acute (3) Urinary tract infection ICD Code: N39.0 Status: Acute Assessment and Plan Nausea, vomiting, intractable.Improved. Abdominal pain.Improving Etiology unclear, could be secondary to systemic infection, marijuana use Continue IV fluids. Patient with intractable nausea and vomiting, severe electrolytes abnormalities. On 0.9 NS with KCL 20 mEq, monitor closely electrolytes. Continue Zofran, Reglan, Phenergan as needed Continue clear liquid diet, advance diet as tolerated Start IV dilaudid 0.5 mg q4 hrs prn as patient with abdominal pain . GI was consulted as patient with persistent N/V not relived by antiemetics so far. GI recommends poss EGD Give piridoxine IV viatamin S/P EGD discussed with Dr Obrien GI, unremarkable EGD, Patient can be DC home to follow up as OP with PCP and GI. Urinary tract infection. E coli resistant to cipro Await cultures for further recommendations Patient on Rocephin IV daily Hypokalemia, secondary from GI loss, persistent hypokalemia dispite NS with KCl . Will give additional bolus IV KCl 40 mEq Continue monitor replete as needed Thrombocytopenia, appears to be chronic Continue to monitor DVT prevention Sequential compression devices Discussed with the patient, nurse, Dr Obrien Problem Qualifiers (1) Nausea & vomiting: Qualified Code: R11.2 - Intractable vomiting with nausea, unspecified vomiting type (2) Urinary tract infection: Darlin Alicia MD Oct 05, 2016 08:05
[2016-10-05] MEDS ORDERED: PYRI100T4 PO (08:09)
[2016-10-05] MEDS ORDERED: LIDO1SOL8 SWISH-SPIT (08:09)
[2016-10-05] MEDS ORDERED: PROM25TA10 PO (08:09)
[2016-10-05] MEDS ORDERED: CARA1TAB6 PO (08:09)
[2016-10-05] MEDS ORDERED: NICO21DI25 T-DERMAL (08:09)
[2016-10-05] MEDS ORDERED: NORC5TAB PO (08:10)
--- NOTE | 2016-10-05 08:10 | HHI.DS ---
Discharge Summary Admission Date Sep 30, 2016 at 22:28 Discharge Date: Oct 05, 2016 Admitting Diagnosis UTI, HYPOKALEMIA, INTRACTABLE VOMITING (1) Nausea & vomiting ICD Code: R11.2 Diagnosis: Principal (2) Hypokalemia ICD Code: E87.6 Diagnosis: Principal (3) Urinary tract infection ICD Code: N39.0 Diagnosis: Principal Procedures none Brief History - From Admission Written by Colt Kinney, acting as scribe for Dr. Alicia on 10/01/16 at 8: 30. This note was transcribed by scribe Colt MCGILL. I, Dr. Darlin Alicia personally performed the history, physical exam, and medical decision making; and confirmed the accuracy of the information in the transcribed note. Authenticated by Dr. Darlin Alicia on 10/01/16 at 8:30. 31-year-old female with no chronic medical illnesses who presented to hospital because of intractable nausea vomiting. Patient is known to the hospital for previous admission for same condition a year ago. Patient indicates that she's been doing well over the last year, she has not followed up with any primary medical doctor or fur liner since last discharge. She went out day night to a concert and she had 3 alcoholic beverages and then at midnight she started having nausea vomiting and she left the concert and went home. She had intractable nausea vomiting was unable to keep anything down so she came to the hospital for evaluation. Patient had workup done emergency department and found to have urinary tract infection, hypokalemia with intractable nausea vomiting. It was requested by ER physician the patient be admitted for further evaluation and management. Upon evaluating the patient this morning she appears to be improved, she is drinking water and abner maya and has not had any recurrent vomiting since 1:30 AM. CBC/BMP: 10/04/16 0505 10/04/16 0505 Significant Findings Laboratory Tests Test 10/02/16 10/03/16 10/04/16 08:35 05:35 05:05 Red Blood Count 3.61 MIL/MM3 3.69 MIL/MM3 3.35 MIL/MM3 (4.00-5.30) (4.00-5.30) (4.00-5.30) Hemoglobin 10.9 GM/DL 11.5 GM/DL 10.6 GM/DL (11.6-15.3) (11.6-15.3) (11.6-15.3) Hematocrit 33.5 % 31.5 % (35.0-46.0) (35.0-46.0) Platelet Count 114 TH/MM3 112 TH/MM3 108 TH/MM3 (150-450) (150-450) (150-450) Neutrophils (%) (Auto) 91.5 % 75.9 % (16.0-70.0) (16.0-70.0) Lymphocytes (%) (Auto) 5.4 % (9.0-44.0) Neutrophils # (Auto) 8.3 TH/MM3 (1.8-7.7) Lymphocytes # (Auto) 0.5 TH/MM3 (1.0-4.8) Potassium Level 2.8 MEQ/L 3.1 MEQ/L 3.3 MEQ/L (3.5-5.1) (3.5-5.1) (3.5-5.1) Calcium Level 7.7 MG/DL 7.9 MG/DL 7.5 MG/DL (8.5-10.1) (8.5-10.1) (8.5-10.1) Blood Urea Nitrogen 6 MG/DL (7-18) 4 MG/DL (7-18) Creatinine 0.42 MG/DL (0.50-1.00) Aspartate Amino Transf 63 U/L (15-37) (AST/SGOT) Alanine Aminotransferase 76 U/L (10-53) (ALT/SGPT) Total Protein 4.9 GM/DL (6.4-8.2) Albumin 2.5 GM/DL (3.4-5.0) Imaging Last Impressions Abdomen Ultrasound 10/05/16 0000 Signed Impressions: Service Date/Time: Wednesday, October 05, 2016 08:14 - CONCLUSION: 1. Probable fatty infiltration of the liver with focal fatty sparing adjacent to the gallbladder fossa. 2. Small amount of sludge in the dependent portion of the gallbladder. No stones are seen. The gallbladder wall is at the upper limits of normal in thickness. Gino Rivas MD PE at Discharge GENERAL: Well-developed, well-nourished, in no acute distress. alert and orientated CARDIAC: Regular rhythm, regular rate. S1/S2 are heard. No murmurs gallops or rubs. LUNGS: Clear to auscultation bilaterally. No wheeze, rhonchi or rales. No use of accessory muscles on inspiration or expiration. ABDOMEN: Soft, nontender. Nondistended. Bowel sounds heard in all 4 quadrants. No organomegaly or masses. Negative rebound, negative guarding EXTREMITIES: No edema, pulses are equal bilaterally. No cyanosis or clubbing NEUROLOGY: Mood and affect appear appropriate. Cranial nerves II through XII grossly intact. Muscle strength 5/5 in upper and lower extremities bilaterally. Deep tendon reflexes are 2+ in upper and lower extremities bilaterally. Hospital Course 31 yo F with intractable nausea, vomiting and abdominal pain. Seen by GI , EGD pretty unremarkable, with fatty liver on US. Check hep and celliac disease. Improved. Able to tolerate food. She was DC home in stable condition to follow up as OP with PCP and consultants. Nausea, vomiting, intractable.Improved. Abdominal pain.Improving Etiology unclear, could be secondary to systemic infection, marijuana use Continue IV fluids. Patient with intractable nausea and vomiting, severe electrolytes abnormalities. On 0.9 NS with KCL 20 mEq, monitor closely electrolytes. Continue Zofran, Reglan, Phenergan as needed Continue clear liquid diet, advance diet as tolerated Start IV dilaudid 0.5 mg q4 hrs prn as patient with abdominal pain . GI was consulted as patient with persistent N/V not relived by antiemetics so far. GI recommends poss EGD Give piridoxine IV viatamin Able to tolerate food. Check celiac disease hep profile oer GI. S/P EGD discussed with Dr Obrien GI, unremarkable EGD, Patient can be DC home to follow up as OP with PCP and GI. Urinary tract infection. E coli resistant to cipro Await cultures for further recommendations Patient on Rocephin IV daily Hypokalemia, secondary from GI loss, persistent hypokalemia dispite NS with KCl . Will give additional bolus IV KCl 40 mEq Continue monitor replete as needed Thrombocytopenia, appears to be chronic Continue to monitor DVT prevention Sequential compression devices Discussed with the patient, nurse, Dr Hemaidan. Patient is able to tolerate food. Discharged in stable condition to follow up as OP with pCP and consultants. Pt Condition on Discharge: Stable Discharge Disposition: Discharge Home Discharge Time: > 30 minutes Discharge Instructions DIET: Follow Instructions for: As Tolerated, No Restrictions Activities you can perform: Regular-No Restrictions Follow up Referrals: Gastroenterology - 2 Weeks PCP Follow-up - 3-5 Days New Medications: Hydrocodone-Acetaminophen (Ganado) 5-325 mg Tab 1 TAB PO Q6H PRN PAIN #10 Ref 0 TAB Promethazine (Phenergan) 25 Mg Tablet 25 MG PO Q6H PRN NAUSEA OR VOMITING #30 Ref 0 TAB Pyridoxine (Pyridoxine) 100 Mg Tab 100 MG PO DAILY Nutritional Supplement #30 Ref 0 TAB Sucralfate (Carafate) 1 Gm Tab 1 GM PO TID On empty stomach Ulcer Prevention #90 Ref 0 TAB Sulfamethoxazole-Trimethoprim (Bactrim DS) 800-160 Mg Tab 1 TAB PO BID Infection #10 Ref 0 TAB Lidocaine Viscous Liq (Lidocaine Viscous Liq) 15 Ml Cup 15 ML SWISH-SPIT Q4H PRN pain throat #120 ML Nicotine (Eq Nicotine) 21 Mg/24 Hr Dis 1 PATCH T-DERMAL DAILY smoking cessation #30 PATCH Darlin Alicia MD Oct 05, 2016 08:10
[2016-10-05] MEDS: REMOVE OLD PATCH T-DERMAL SCH (09:00)
[2016-10-05] MEDS: CALCIUM CARBONATE 500 MG CHEWABLE TAB CHEW SCH (09:00)
[2016-10-05] MEDS: MAGNESIUM OXIDE 400 MG TAB PO SCH (09:00)
--- NOTE | 2016-10-05 09:28 | RADRPT ---
EXAM DATE/TIME: 10/05/2016 08:14 [facility] COMPARISON: US KIDNEY/RENAL/BLADDER, April 27, 2015, 13:34. INDICATIONS : Nausea. MEDICAL HISTORY : Nausea. SURGICAL HISTORY : Tubal ligation. section. ENCOUNTER: Initial ACUITY: 4-6 days PAIN SCORE: 0/10 LOCATION: Bilateral upper quadrant MEASUREMENTS: LIVER: 18.0 cm length COMMON DUCT: 5 mm RIGHT KIDNEY: 11.4 x 5.3 x 4.8 cm LEFT KIDNEY: 10.5 x 4.7 x 6.3 cm SPLEEN: 9.1 cm length AORTA: 1.9cm maximal FINDINGS: LIVER: The echotexture is somewhat heterogeneous and increased suggesting fatty infiltration. There is an ar ea of decreased echogenicity adjacent to the gallbladder fossa probably representing focal fatty spar ing. COMMON DUCT: No intraluminal mass or stone visualized. GALLBLADDER: No stones are identified. There is a small amount of sludge in the dependent portion of the gallbladd er. The gallbladder is mildly decompressed. The gallbladder wall appears at the upper limits of mark l in thickness. There is no pericholecystic fluid. PANCREAS: The visualized portions are within normal limits. RIGHT KIDNEY: No hydronephrosis, stone or mass. LEFT KIDNEY: No hydronephrosis, stone or mass. SPLEEN: No focal lesion. AORTA: Non aneurysmal. IVC: Within normal limits. CONCLUSION: 1. Probable fatty infiltration of the liver with focal fatty sparing adjacent to the gallbladder steven a. 2. Small amount of sludge in the dependent portion of the gallbladder. No stones are seen. The gallbl adder wall is at the upper limits of normal in thickness. Gino Rivas MD on October 05, 2016 at 9:24 Board Certified Radiologist. This report was verified electronically.
[2016-10-05] MEDS: PYRIDOXINE HCL 100 MG/ML VIAL IV SCH (09:46)
[2016-10-05] MEDS: METOCLOPRAMIDE HCL 10 MG/2 ML VIAL IV PUSH SCH ×2 (09:47→14:03)
[2016-10-05] MEDS: NICOTINE 21 MG/24 HR PATCH T-DERMAL SCH (09:47)
[2016-10-05] MEDS: SODIUM CHLORIDE 0.9% FLUSH 10 ML FLUSH IV FLUSH SCH (09:48)
[2016-10-05] MEDS ORDERED: PROPOFOL 200 MG/20 ML AMP IV ONE (12:21)
--- NOTE | 2016-10-05 12:27 | HHI.GIFU ---
Subjective Remarks feels better, no vomiting less nausea, still some abdominal pain Objective Vitals I&O Vital Signs Date Time Temp Pulse Resp B/P Pulse Ox O2 Delivery O2 Flow Rate FiO2 10/05/16 08:00 98.0 70 16 115/77 97 10/05/16 04:00 97.7 66 16 133/86 98 10/05/16 00:00 97.9 65 18 124/77 100 10/04/16 21:57 16 10/04/16 20:00 99.0 68 16 128/86 98 10/04/16 16:00 98.0 72 16 110/66 98 I/O 10/04/16 10/04/16 10/04/16 10/05/16 10/05/16 10/05/16 06:59 14:59 22:59 06:59 14:59 22:59 Intake Total 2496 ml 580 ml 480 ml Output Total 500 ml 600 ml Balance 1996 ml -20 ml 480 ml Intake Oral 480 ml 580 ml 480 ml IV Total 2016 ml Output Urine Total 500 ml 600 ml # Voids 3 2 # Bowel Movements 0 0 0 Laboratory Laboratory Tests Test 10/04/16 10/05/16 15:20 06:15 Stool C. difficile Toxin (PCR) NEGATIVE Stl C. difficile Toxin PRESUMPTIVE Epiderm 027 NEGATIVE Lipase 209 Date/Time Procedure Status Source Growth 10/04/16 17:35 Cryptosporidium Exam Received Stool Stool Pending 10/04/16 17:35 Giardia Antigen ([facility]ON) Received Stool Stool Pending 10/04/16 15:20 Cancelled Stool Stool 10/04/16 15:20 Cancelled Stool Stool 09/30/16 21:25 Urine Culture - Final Complete Urine Clean Catch Escherichia Coli Physical Exam HEENT: Pupils round and reactive to light; normocephalic; atraumatic; no jaundice. Throat is clear. NECK: Neck is supple, no JVD, no lymphadenopathy. CHEST: Chest is clear to auscultation and percussion. CARDIAC: Regular rate and rhythm with no murmur gallop or rubs. ABDOMEN: Soft, nondistended, mild lower abdominal tenderness; no hepatosplenomegaly; bowel sounds are present in all four quadrants. EXTREMITIES: No clubbing, cyanosis, or edema. SKIN: Normal; no rash; no jaundice. CHILDBIRTH EDUCATOR: No focal deficits; alert and oriented times three. Assessment and Plan Plan nausea vomiting, most likely related to UTI, EGD showed ? esophagitis maybe positive for becky, reddness mucosa of the duodenum Bx to R/O Celiac Dx LFTs elevated, we will check hepatitis profile mild anemia, we will check Bx from celiac ok to feed patient maybe DC home from GI stand, FU as outpatient in few wks Rich Obrien MD Oct 05, 2016 12:27
[2016-10-05] MEDS ORDERED: BACT800T5 PO (12:49)
[2016-10-05 13:52] VITALS: BP 127/86; PULSE 76; RESP 18; TEMP 98.4; O2SAT 99
--- NOTE | 2016-10-05 21:41 | MR ---
cc: AJ OBRIEN M.D. DATE 10/05/2016 DATE OF 1985 PROCEDURE Upper gastrointestinal endoscopy with biopsy. ENDOSCOPIST Dr. Obrien MEDICATIONS Propofol administered with anesthesia. INSTRUMENT Pentax upper scope. INDICATION A 31-year-old lady with nausea, vomiting, abdominal pain, mildly elevated liver function tests and anemia. PROCEDURE IN DETAIL After informing the patient about procedure and complication consent was signed. The patient was placed on her left lateral decubitus, adequate sedation was achieved by propofol. The scope was placed in the mouth, advanced under video guidance to the second portion of the duodenum. The scope drawn back to the stomach. Retroflexion was performed, then the scope drawn back without immediate complication. FINDINGS Esophagus: Questionable Renee esophagitis, biopsy was done. Stomach: Normal. Biopsy throughout its pylori. Duodenum: Some redness, possible flat folds. Because of the patient's elevated liver function test and anemia I did biopsies from the duodenal bulb in the second portion to rule out celiac disease. RECOMMENDATIONS 1. ___ patient, most likely the nausea and vomiting related to UTI. 2. We will follow up on the biopsy to rule out celiac disease. 3. The patient may be discharged from GI point. 4. Follow up as an outpatient in a few weeks. 5. Will check hepatitis panel because of the elevated liver function tests. MD KATHERINE Almonte/CHARLY /12:35 PM /9:31 PM
== END 2016-10-05 15:59 | disposition home or self-care (01) | DRG 690 ==
LOC: PHED 20:40 → PHEDA 22:28 → PH5A 10-01 01:19
PROVIDERS: ADMIT Hospitalist; ATTEND Hospitalist
PROC: 0DB78ZX Excision of Stomach, Pylorus, Via Natural or Artificial Opening Endoscopic, Diagnostic (ICD-10-PCS; 2016-10-05)
PROC: 0DB58ZX Excision of Esophagus, Via Natural or Artificial Opening Endoscopic, Diagnostic (ICD-10-PCS; 2016-10-05)
PROC: 0DB98ZX Excision of Duodenum, Via Natural or Artificial Opening Endoscopic, Diagnostic (ICD-10-PCS; principal; 2016-10-05 12:12)
DX: N30.00 Acute cystitis without hematuria (principal); D69.6 Thrombocytopenia, unspecified; A60.00 Herpesviral infection of urogenital system, unspecified; E87.6 Hypokalemia; F17.210 Nicotine dependence, cigarettes, uncomplicated; B96.20 Unspecified Escherichia coli [E. coli] as the cause of diseases classified elsewhere; R11.2 Nausea with vomiting, unspecified; D64.9 Anemia, unspecified; K21.0 Gastro-esophageal reflux disease with esophagitis; Z16.23 Resistance to quinolones and fluoroquinolones; Z87.440 Personal history of urinary (tract) infections; R19.7 Diarrhea, unspecified
CPT/HCPCS: 76700; 76937; 80048; 80053; 80074; 80076; 81001; 82784; 83516; 83690; 83735; 84155; 85025; 87077; 87086; 87186; 87493; 88305; 88312; 96361; 96374; 96375; C9113; J0696; J0780; J1170; J2270; J2405; J2550; J2765; J3415; J3475; J3480; J7030

== ENCOUNTER 2016-12-21 12:02 | Observation (INO) | payer MEDICAID ==
[~2016-12-21 12:02] MED LIST changes: -BACT800T5 PO; +CIPR0.3S RIGHT EAR; +CYAN1TAB21 SL; -LACTCHW3 PO; -METR500T10 PO; +NICO21DI25 T-DERMAL; +PANT40TA3 PO; -PROM25TA5 PO; +PYRI100T4 PO; +RANI150T PO; +ZOFR4TAB PO; +[UNRECOGNIZED DRUG - CODE] PO
[2016-12-21 12:05] VITALS: PULSE 65; RESP 22; TEMP 97.9; O2SAT 99
[2016-12-21 12:19] VITALS: BP 117/62; PULSE 62; RESP 18; O2SAT 98
[2016-12-21] MEDS ORDERED: SODIUM CHLOR 0.9% 1000 ML INJ 1,000 ML IV SCH (12:19)
[2016-12-21] MEDS ORDERED: MORPHINE SULFATE 4 MG/ML INJ IV PUSH ONE (12:30)
[2016-12-21] MEDS ORDERED: SODIUM CHLORIDE 0.9% FLUSH 10 ML FLUSH IV FLUSH PRN ×2 (12:30→15:00)
[2016-12-21] MEDS ORDERED: FAMOTIDINE 20 MG/2 ML VIAL IV PUSH ONE (12:30)
[2016-12-21] MEDS ORDERED: ONDANSETRON HCL 4 MG/2 ML VIAL IVP ONE (12:30)
--- NOTE | 2016-12-21 12:32 | PD ---
HPI Chief Complaint: GI Complaint Time Seen by Provider: 12:14 Travel History International Travel<30 days: No Contact w/Intl Traveler<30days: No Traveled to known affect area: No History of Present Illness HPI The patient is a 31-year-old female who presents to the emergency department for nausea, vomiting, diarrhea, and abdominal pain. The patient states she had chicken the last night, with the bed feeling well, and awakened at 3 AM with nausea and vomiting. The patient notes multiple episodes of nausea and vomiting and estimates that she vomited approximately 15 minutes while in route from [place], [place], to [place] to be evaluated at the emergency department. The patient does have a history of similar symptoms in the past with previous admissions and underwent endoscopy which is essentially unremarkable. The patient does have a history of hypokalemia with her episodes of nausea and vomiting. The patient states that her whole body is "numb". The patient does note she has a primary physician, Dr. Carmichael, and also has a draw in hand, however, cannot recall the name of her draw in hand. The patient can also not recall the medications that she is currently taking for her persistent epigastric discomfort and persistent nausea/vomiting. The patient's symptoms are moderate, similar to previous episodes associated with hypokalemia, and there are no current alleviating factors. PFSH Past Medical History Arthritis: Yes (Knees, Ankle, Wrist, and Shoulder) Anxiety: Yes (Going about 8 years) Cancer: No Cardiovascular Problems: No Diminished Hearing: No Endocrine: No Gastrointestinal Disorders: Yes Genitourinary: No Immune Disorder: No Musculoskeletal: No Neurologic: No Psychiatric: No Reproductive: No Respiratory: No Immunizations Current: Yes Migraines: Yes ?: Not LMP: 1 MONTH : 4 Para: 4 Miscarriage: 0 : 0 Tubal Ligation: Yes (DEC 24, 2008) Past Surgical History Abdominal Surgery: No Cardiac Surgery: No Section: Yes Ear Surgery: No Endocrine Surgery: No Eye Surgery: No Genitourinary Surgery: No Gynecologic Surgery: Yes (2 C-Sections, Tubal Ligation ) Oral Surgery: No Thoracic Surgery: No Other Surgery: Yes (c section) Social History Alcohol Use: No Tobacco Use: Yes (1ppd) Substance Use: Yes (Marjunia x 6 days per week) Allergies-Medications (Allergen,Severity, Reaction): Coded Allergies: No Known Allergies (Verified , 12/21/16) Reported Meds & Prescriptions Reported Meds & Active Scripts Active Vitamin B-12 Odt (Cyanocobalamin) 5,000 Mcg Tab 5,000 Mcg SL DAILY Ranitidine (Ranitidine HCl) 150 Mg Tab 150 Mg PO HS Zofran (Ondansetron HCl) 4 Mg Tab 4 Mg PO Q6HR PRN Eql All Day Allergy (Cetirizine HCl) 10 Mg Tab 10 Mg PO DAILY Pantoprazole (Pantoprazole Sodium) 40 Mg Tab 40 Mg PO DAILY Pyridoxine (Pyridoxine HCl) 100 Mg Tab 100 Mg PO DAILY Review of Systems Except as stated in HPI: all other systems reviewed are Neg General / Constitutional: No: Fever Cardiovascular: No: Chest Pain or Discomfort Respiratory: No: Shortness of Breath Gastrointestinal: Positive: Nausea, Vomiting, Diarrhea, Abdominal Pain Genitourinary: No: Dysuria Musculoskeletal: Positive: Weakness Neurologic: Positive: Paresthesia, Sensory Disturbance Physical Exam Narrative GENERAL: Awake, alert, 31-year-old female who appears older than her stated age but is in no acute respiratory distress. SKIN: Focused skin assessment warm/dry. HEAD: Atraumatic. Normocephalic. EYES: Pupils equal and round. No scleral icterus. No injection or drainage. ENT: No nasal bleeding or discharge. Mucous membranes pink and moist. NECK: Trachea midline. No JVD. CARDIOVASCULAR: Regular rate and rhythm. No murmur appreciated. RESPIRATORY: No accessory muscle use. Clear to auscultation. Breath sounds equal bilaterally. GASTROINTESTINAL: Abdomen soft, mild tenderness left lower quadrant, left upper quadrant and epigastrium. No rebound tenderness. MUSCULOSKELETAL: No obvious deformities. No clubbing. No cyanosis. No edema. NEUROLOGICAL: Awake and alert. No obvious cranial nerve deficits. Motor grossly within normal limits. Normal speech. PSYCHIATRIC: Anxious. Data Data Last Documented VS Vital Signs Date Time Temp Pulse Resp B/P (MAP) Pulse Ox O2 Delivery O2 Flow Rate FiO2 12/21/16 14:42 74 18 107/65 (79) 100 Room Air 12/21/16 12:05 97.9 Orders Orders Complete Blood Count With Diff (12/21/16 12:19) Comprehensive Metabolic Panel (12/21/16 12:19) Lipase (12/21/16 12:19) Lactic Acid (12/21/16 12:19) Urinalysis - C+S If Indicated (12/21/16 12:19) Ct Abd/Pel W/O Iv Contrast (12/21/16 12:19) Iv Access Insert/Monitor (12/21/16 12:19) Ecg Monitoring (12/21/16 12:19) Oximetry (12/21/16 12:19) Morphine Inj (Morphine Inj) (12/21/16 12:30) Ondansetron Inj (Zofran Inj) (12/21/16 12:30) Sodium Chlor 0.9% 1000 Ml Inj (Ns 1000 M (12/21/16 12:19) Sodium Chloride 0.9% Flush (Ns Flush) (12/21/16 12:30) Famotidine Inj (Pepcid Inj) (12/21/16 12:30) Ed Urine Pregnancytest Poc (12/21/16 12:19) Potassium Chloride (Kcl) (12/21/16 13:15) Potassium Chlor 20 Meq Premix (Kcl 20 Me (12/21/16 13:15) Sodium Chlor 0.9% 1000 Ml Inj (Ns 1000 M (12/21/16 13:15) Diphenhydramine Inj (Benadryl Inj) (12/21/16 13:15) Prochlorperazine Inj (Compazine Inj) (12/21/16 13:15) Admit Order (Ed Use Only) (12/21/16 14:53) Labs Laboratory Tests Test 12/21/16 12:30 White Blood Count 10.1 TH/MM3 Red Blood Count 4.40 MIL/MM3 Hemoglobin 13.2 GM/DL Hematocrit 39.9 % Mean Corpuscular Volume 90.7 FL Mean Corpuscular Hemoglobin 30.1 PG Mean Corpuscular Hemoglobin Concent 33.2 % Red Cell Distribution Width 14.0 % Platelet Count 140 TH/MM3 Mean Platelet Volume 9.9 FL Neutrophils (%) (Auto) 88.3 % Lymphocytes (%) (Auto) 7.6 % Monocytes (%) (Auto) 2.3 % Eosinophils (%) (Auto) 0.2 % Basophils (%) (Auto) 1.6 % Neutrophils # (Auto) 8.9 TH/MM3 Lymphocytes # (Auto) 0.8 TH/MM3 Monocytes # (Auto) 0.2 TH/MM3 Eosinophils # (Auto) 0.0 TH/MM3 Basophils # (Auto) 0.2 TH/MM3 CBC Comment DIFF FINAL Differential Comment Blood Urea Nitrogen 10 MG/DL Creatinine 0.94 MG/DL Random Glucose 146 MG/DL Total Protein 7.2 GM/DL Albumin 3.8 GM/DL Calcium Level 9.2 MG/DL Alkaline Phosphatase 100 U/L Aspartate Amino Transf (AST/SGOT) 27 U/L Alanine Aminotransferase (ALT/SGPT) 36 U/L Total Bilirubin 0.8 MG/DL Sodium Level 134 MEQ/L Potassium Level 3.2 MEQ/L Chloride Level 98 MEQ/L Carbon Dioxide Level 24.5 MEQ/L Anion Gap 12 MEQ/L Estimat Glomerular Filtration Rate 70 ML/MIN Lactic Acid Level 3.3 mmol/L Lipase 176 U/L [facility] Medical Decision Making Medical Screen Exam Complete: Yes Emergency Medical Condition: Yes Medical Record Reviewed: Yes Interpretation(s) Last Impressions Abdomen/Pelvis CT 12/21/16 1219 Signed Impressions: Service Date/Time: Wednesday, December 21, 2016 12:46 - CONCLUSION: Negative. I don't see an etiology for the left lower quadrant pain Lee Rivas MD FACR Laboratory Tests Test 12/21/16 12:30 White Blood Count 10.1 TH/MM3 Red Blood Count 4.40 MIL/MM3 Hemoglobin 13.2 GM/DL Hematocrit 39.9 % Mean Corpuscular Volume 90.7 FL Mean Corpuscular Hemoglobin 30.1 PG Mean Corpuscular Hemoglobin Concent 33.2 % Red Cell Distribution Width 14.0 % Platelet Count 140 TH/MM3 Mean Platelet Volume 9.9 FL Neutrophils (%) (Auto) 88.3 % Lymphocytes (%) (Auto) 7.6 % Monocytes (%) (Auto) 2.3 % Eosinophils (%) (Auto) 0.2 % Basophils (%) (Auto) 1.6 % Neutrophils # (Auto) 8.9 TH/MM3 Lymphocytes # (Auto) 0.8 TH/MM3 Monocytes # (Auto) 0.2 TH/MM3 Eosinophils # (Auto) 0.0 TH/MM3 Basophils # (Auto) 0.2 TH/MM3 CBC Comment DIFF FINAL Differential Comment Blood Urea Nitrogen 10 MG/DL Creatinine 0.94 MG/DL Random Glucose 146 MG/DL Total Protein 7.2 GM/DL Albumin 3.8 GM/DL Calcium Level 9.2 MG/DL Alkaline Phosphatase 100 U/L Aspartate Amino Transf (AST/SGOT) 27 U/L Alanine Aminotransferase (ALT/SGPT) 36 U/L Total Bilirubin 0.8 MG/DL Sodium Level 134 MEQ/L Potassium Level 3.2 MEQ/L Chloride Level 98 MEQ/L Carbon Dioxide Level 24.5 MEQ/L Anion Gap 12 MEQ/L Estimat Glomerular Filtration Rate 70 ML/MIN Lactic Acid Level 3.3 mmol/L Lipase 176 U/L Differential Diagnosis Differential diagnosis includes gastritis, gastroenteritis, gastroparesis, peptic ulcer disease, hypokalemia, dehydration, IBS, IBD, pancreatitis. Narrative Course IV was established, labs are drawn and sent, and the patient was placed on cardiac telemetry monitoring and continuous pulse oximetry monitoring. The patient was administered Zofran, morphine, and IV fluids. Noncontrast CT of the abdomen and pelvis was ordered. White count is unremarkable. Lactic acid was mildly elevated at 3.3. Potassium is low at 3.2, was replaced orally and intravenously. The patient was reevaluated at 1 PM continues to have dry heaves. Therefore, the patient was administered a second liter of IV fluids with Compazine and Benadryl. CT of the abdomen and pelvis is unremarkable, no acute findings. The patient was reevaluated at 2:30 PM, continues to have intractable nausea and dry heaves despite Zofran, Compazine, and Benadryl. The patient may be suffering from abdominal migraine versus intractable gastritis. The patient's lactic acid was 3.3, she was administered IV fluids, she still has this symptomatic relief. Therefore, patient will be 23 hour observation to the medical service for IV fluids and antiemetics. A call was placed to [facility] for 23 hour observation. Physician Communication Physician Communication [facility] were paged for 23 hour observation. I discussed the patient with Dr. [place] who agrees with 23 hour observation. Diagnosis Primary Impression: Intractable nausea and vomiting Qualified Codes: R11.2 - Nausea with vomiting, unspecified Additional Impression: Gastritis Qualified Codes: K29.00 - Acute gastritis without bleeding Admitting Information Admitting Physician Requests: Observation Condition: Stable Marino Arizmendi MD Dec 21, 2016 12:32
[2016-12-21 12:35] LABS: AUTOMATED NEUTROPHIL # 8.9 TH/MM3 (1.8-7.7); BASOPHIL # 0.2 TH/MM3 (0-0.2); BASOPHIL % 1.6 % (0.0-2.0); EOSINOPHIL % 0.2 % (0.0-4.0); HEMATOCRIT 39.9 % (35.0-46.0); HEMO FLAGS DIFF FINAL; LYMPH % 7.6 % (9.0-44.0); LYMPHOCYTE # 0.8 TH/MM3 (1.0-4.8); MEAN CELL VOLUME 90.7 FL (80.0-100.0); MEAN CORPUSCULAR HEMOGLOBIN 30.1 PG (27.0-34.0); MEAN CORPUSCULAR HGB CONC 33.2 % (32.0-36.0); MONO % 2.3 % (0.0-8.0); NEUT % 88.3 % (16.0-70.0); PLATELET COUNT 140 TH/MM3 (150-450); WHITE BLOOD COUNT 10.1 TH/MM3 (4.0-11.0)
[2016-12-21 12:40] VITALS: O2SAT 100
[2016-12-21 12:42] LABS: CHLORIDE 98 MEQ/L (98-107); POTASSIUM 3.2 MEQ/L (3.5-5.1); SODIUM (NA) 134 MEQ/L (136-145)
[2016-12-21 12:46] LABS: ANION GAP 12 MEQ/L (5-15); BICARBONATE 24.5 MEQ/L (21.0-32.0); BLOOD UREA NITROGEN 10 MG/DL (7-18)
[2016-12-21 12:48] LABS: ALT (GPT) 36 U/L (10-53); AST (GOT) 27 U/L (15-37)
[2016-12-21 12:49] LABS: GLOMERULAR FILTRATION RATE 70 ML/MIN (>89)
[2016-12-21 12:50] LABS: TOTAL BILIRUBIN ADULT 0.8 MG/DL (0.2-1.0)
[2016-12-21 12:51] LABS: ALKALINE PHOSPHATASE 100 U/L (45-117)
--- NOTE | 2016-12-21 13:00 | RADRPT ---
EXAM DATE/TIME: 12/21/2016 12:46 [facility] COMPARISON: No previous studies available for comparison. INDICATIONS : Left lower quadrant pain. Nausea, vomiting and diarrhea. ORAL CONTRAST: No oral contrast ingested. RADIATION DOSE: 5.13 CTDIvol (mGy) MEDICAL HISTORY : None SURGICAL HISTORY : Tubal ligation. section. ENCOUNTER: Initial ACUITY: 1 day PAIN SCALE: 7/10 LOCATION: Left lower quadrant TECHNIQUE: Volumetric scanning of the abdomen and pelvis was performed. Using automated exposure control and ad justment of the mA and/or kV according to patient size, radiation dose was kept as low as reasonably achievable to obtain optimal diagnostic quality images. DICOM format image data is available electro nically for review and comparison. FINDINGS: LOWER LUNGS: The visualized lower lungs are clear. LIVER: Homogeneous density without lesion. There is no dilation of the biliary tree. No calcified gallston es. SPLEEN: Normal size without lesion. PANCREAS: Within normal limits. KIDNEYS: Normal in size and shape. There is no mass, stone, or hydronephrosis. ADRENAL GLANDS: Within normal limits. VASCULAR: There is no aortic aneurysm. BOWEL/MESENTERY: The stomach, small bowel, and colon demonstrate no acute abnormality. There is no free intraperitone al air or fluid. ABDOMINAL WALL: Within normal limits. RETROPERITONEUM: There is no lymphadenopathy. BLADDER: No wall thickening or mass. REPRODUCTIVE: Within normal limits. INGUINAL: There is no lymphadenopathy or hernia. MUSCULOSKELETAL: Within normal limits for patient age. CONCLUSION: Negative. I don't see an etiology for the left lower quadrant pain Lee Rivas MD FACR on December 21, 2016 at 12:58 Board Certified Radiologist. This report was verified electronically.
[2016-12-21] MEDS ORDERED: SODIUM CHLOR 0.9% 1000 ML INJ 1,000 ML IV ONE (13:15)
[2016-12-21] MEDS ORDERED: POTASSIUM CHLORIDE 20 MEQ CONTROLLED RELEASE TAB PO ONE (13:15)
[2016-12-21] MEDS ORDERED: diphenhydrAMINE HCL 50 MG/ML VIAL IV PUSH ONE (13:15)
[2016-12-21] MEDS ORDERED: POTASSIUM CHLOR 20 MEQ PREMIX 100 ML IV ONE (13:15)
[2016-12-21] MEDS ORDERED: PROCHLORPERAZINE INJ 10 MG/2 ML VIAL IV PUSH ONE (13:15)
[2016-12-21 14:42] VITALS: BP 107/65; PULSE 74; RESP 18; O2SAT 100
[2016-12-21] MEDS ORDERED: ACETAMINOPHEN 325 MG TAB PO PRN (15:00)
[2016-12-21] MEDS ORDERED: MAGNESIUM HYDROXIDE SUSP 30 ML CUP PO PRN (15:00)
[2016-12-21] MEDS ORDERED: ONDANSETRON HCL 4 MG/2 ML VIAL IVP PRN (15:00)
[2016-12-21] MEDS ORDERED: NALOXONE HCL 0.4 MG/ML AMP IV PUSH PRN (15:00)
[2016-12-21] MEDS ORDERED: SENNOSIDES 8.6 MG TAB PO PRN (15:00)
[2016-12-21] MEDS ORDERED: BISACODYL 10 MG SUPP RECTAL PRN (15:00)
[2016-12-21] MEDS ORDERED: METOCLOPRAMIDE HCL 10 MG/2 ML VIAL IV PUSH PRN (15:00)
[2016-12-21] MEDS ORDERED: LACTULOSE SYRUP 20 GM/30 ML CUP PO PRN (15:00)
[2016-12-21] MEDS ORDERED: ENOXAPARIN SODIUM 40 MG/0.4 ML SYRINGE SQ SCH (16:00)
[2016-12-21] MEDS: SODIUM CHLOR 0.9% 1000 ML INJ 1,000 ML IV SCH ×2 (16:10→22:05)
--- NOTE | 2016-12-21 16:40 | HHI.HP ---
HPI Service [facility] Primary Care Physician No Primary Care Physician Admission Diagnosis intractable nausea/vomiting, epigastric abdominal pain Diagnoses: (1) Intractable vomiting Diagnosis: Principal Chief Complaint: Nausea vomiting Travel History International Travel<30 Days: No Contact w/Intl Traveler <30 Da: No Traveled to Known Affected Are: No History of Present Illness Written by Colt Kinney, acting as scribe for Dr. Alicia on 12/21/16 at 16: 36. 31-year-old female with known history of recurrent nausea, vomiting, marijuana use who presented to hospital again because of intractable nausea vomiting. Patient states that she has been in normal state of health until 3 AM this morning when she had sudden onset of nausea vomiting and has been unable to stop since then. She states that he vomited at least 10 times prior to coming to the hospital in the last time that she vomited was 2 hours ago. Patient had multiple workups done in the hospital without any significant etiology. On her last hospitalization in September patient did undergo evaluation by semiconductor processing technician with endoscopy which showed a questionable Renee esophagitis, stomach was normal. On the last visit patient had hepatitis panel performed which was normal. Biopsy from her last endoscopy does indicate severe acute esophagitis with intraepithelial fungal-day and spores consistent with Renee species. Stomach did show chronic gastritis. negative for Helicobacter pylori. Patient came to emergency department and evaluated for intractable nausea vomiting. Patient still with episodes of nausea vomiting and unable to control in the emergency department, thus it was recommended by ER physician the patient be observed in the hospital for further evaluation and management Review of Systems Gastrointestinal: COMPLAINS OF: Abdominal pain, Nausea, Vomiting Except as stated in HPI: all other systems reviewed are Neg Past Family Social History Past Medical History History of cystitis Marijuana abuse Past Surgical History 2 Tubal ligation Reported Medications Reported Meds & Active Scripts Active Vitamin B-12 Odt (Cyanocobalamin) 5,000 Mcg Tab 5,000 Mcg SL DAILY Ranitidine (Ranitidine HCl) 150 Mg Tab 150 Mg PO HS Zofran (Ondansetron HCl) 4 Mg Tab 4 Mg PO Q6HR PRN Eql All Day Allergy (Cetirizine HCl) 10 Mg Tab 10 Mg PO DAILY Pantoprazole (Pantoprazole Sodium) 40 Mg Tab 40 Mg PO DAILY Pyridoxine (Pyridoxine HCl) 100 Mg Tab 100 Mg PO DAILY Allergies: Coded Allergies: No Known Allergies (Verified , 12/21/16) Family History Reviewed is significant for grandmother having breast cancer, grandfather with lung cancer. Social History Patient does smoke a half a pack a cigarettes a day since she was 21 years old. She does smoke marijuana every other day. She does drink alcohol occasionally. Physical Exam Vital Signs Vital Signs Date Time Temp Pulse Resp B/P (MAP) Pulse Ox O2 Delivery O2 Flow Rate FiO2 12/21/16 14:42 74 18 107/65 (79) 100 Room Air 12/21/16 12:40 100 12/21/16 12:19 62 18 117/62 (80) 98 Room Air 12/21/16 12:05 97.9 65 22 99 Physical Exam GENERAL: Well-developed, well-nourished, in no acute distress. alert and orientated HEENT: Head is normocephalic without any lesions or masses noted. Facial features are symmetric. Eyes: Pupils equal round reactive to light. Extraocular muscles are intact. Conjunctivae were clear. Oropharyngeal: Pharynx without any erythema edema. Tongue is midline without deviation. Buccal mucosa is moist without any masses or lesions NECK: Supple without any masses. Trachea midline no deviation. No JVD, no bruits are appreciated CARDIAC: Regular rhythm, regular rate. S1/S2 are heard. No murmurs gallops or rubs. LUNGS: Clear to auscultation bilaterally. No wheeze, rhonchi or rales. No use of accessory muscles on inspiration or expiration. ABDOMEN: Soft, mild tenderness noted in the left mid and lower abdomen. Nondistended. Bowel sounds heard in all 4 quadrants. No organomegaly or masses. Negative rebound, negative guarding EXTREMITIES: No edema, pulses are equal bilaterally. No cyanosis or clubbing NEUROLOGY: Mood and affect appear appropriate. Cranial nerves II through XII grossly intact. Muscle strength 5/5 in upper and lower extremities bilaterally. Deep tendon reflexes are 2+ in upper and lower extremities bilaterally. Laboratory Laboratory Tests Test 12/21/16 12:30 12/21/16 16:21 White Blood Count 10.1 Red Blood Count 4.40 Hemoglobin 13.2 Hematocrit 39.9 Mean Corpuscular Volume 90.7 Mean Corpuscular Hemoglobin 30.1 Mean Corpuscular Hemoglobin Concent 33.2 Red Cell Distribution Width 14.0 Platelet Count 140 Mean Platelet Volume 9.9 Neutrophils (%) (Auto) 88.3 Lymphocytes (%) (Auto) 7.6 Monocytes (%) (Auto) 2.3 Eosinophils (%) (Auto) 0.2 Basophils (%) (Auto) 1.6 Neutrophils # (Auto) 8.9 Lymphocytes # (Auto) 0.8 Monocytes # (Auto) 0.2 Eosinophils # (Auto) 0.0 Basophils # (Auto) 0.2 CBC Comment DIFF FINAL Differential Comment Blood Urea Nitrogen 10 Creatinine 0.94 Random Glucose 146 Total Protein 7.2 Albumin 3.8 Calcium Level 9.2 Alkaline Phosphatase 100 Aspartate Amino Transf (AST/SGOT) 27 Alanine Aminotransferase (ALT/SGPT) 36 Total Bilirubin 0.8 Sodium Level 134 Potassium Level 3.2 Chloride Level 98 Carbon Dioxide Level 24.5 Anion Gap 12 Estimat Glomerular Filtration Rate 70 Lactic Acid Level 3.3 Lipase 176 Result Diagram: 12/21/16 1230 12/21/16 1230 Imaging Last Impressions Abdomen/Pelvis CT 12/21/16 1219 Signed Impressions: Service Date/Time: Wednesday, December 21, 2016 12:46 - CONCLUSION: Negative. I don't see an etiology for the left lower quadrant pain Lee Rivas MD FACR Capkeithi VTE Risk Assessment Caprini VTE Risk Assessment: No/Low Risk (score <= 1) Caprini Risk Assessment Model Point Value = 1 Point Value = 2 Point Value = 3 Point Value = 5 Age 41-60 Minor surgery BMI > 25 kg/m2 Swollen legs Varicose veins or History of unexplained or recurrent spontaneous Oral contraceptives or hormone replacement Sepsis (< 1 month) Serious lung disease, including pneumonia (< 1 month) Abnormal pulmonary function Acute myocardial infarction Congestive heart failure (< 1 month) History of inflammatory bowel disease Medical patient at bed rest Age 61-74 Arthroscopic surgery Major open surgery (> 45 min) Laparoscopic surgery (> 45 min) Malignancy Confined to bed (> 72 hours) Immobilizing plaster cast Central venous access Age >= 75 History of VTE Family history of VTE Factor V Leiden Prothrombin [id number] Lupus anticoagulant Anticardiolipin antibodies Elevated serum homocysteine Heparin-induced thrombocytopenia Other congenital or acquired thrombophilia Stroke (< 1 month) Elective arthroplasty Hip, pelvis, or leg fracture Acute spinal cord injury (< 1 month) Prophylaxis Regimen Total Risk Factor Score Risk Level Prophylaxis Regimen 0-1 Low Early ambulation 2 Moderate Order ONE of the following: *Sequential Compression Device (SCD) *Heparin 5000 units SQ BID 3-4 Higher Order ONE of the following medications: *Heparin 5000 units SQ TID *Enoxaparin/Lovenox 40 mg SQ daily (WT < 150 kg, CrCl > 30 mL/min) *Enoxaparin/Lovenox 30 mg SQ daily (WT < 150 kg, CrCl > 10-29 mL/min) *Enoxaparin/Lovenox 30 mg SQ BID (WT < 150 kg, CrCl > 30 mL/min) AND/OR *Sequential Compression Device (SCD) 5 or more Highest Order ONE of the following medications: *Heparin 5000 units SQ TID (Preferred with Epidurals) *Enoxaparin/Lovenox 40 mg SQ daily (WT < 150 kg, CrCl > 30 mL/min) *Enoxaparin/Lovenox 30 mg SQ daily (WT < 150 kg, CrCl > 10-29 mL/min) *Enoxaparin/Lovenox 30 mg SQ BID (WT < 150 kg, CrCl > 30 mL/min) AND *Sequential Compression Device (SCD) Assessment and Plan Assessment and Plan Nausea, vomiting, intractable, recurrent Etiology unclear, could be secondary marijuana use, possible abdominal migraine Continue IV fluids Continue Zofran, Reglan as needed Continue clear liquid diet, advance diet as tolerated Thrombocytopenia, appears to be chronic Continue monitor DVT prevention Low risk, early ambulation This note was transcribed by ARTEM Trivedi. I, Dr. Darlin Alicia personally performed the history, physical exam, and medical decision making; and confirmed the accuracy of the information in the transcribed note. Authenticated by Dr. Darlin Alicia on 12/21/16 at 16:36. Colt Kinney Dec 21, 2016 16:40 Darlin Alicia MD Dec 21, 2016 18:19
[2016-12-21 16:47] VITALS: PULSE 56; RESP 17; O2SAT 98
[2016-12-21 19:50] VITALS: BP 95/53; PULSE 62; RESP 20; TEMP 99; O2SAT 100
[2016-12-21] MEDS: SODIUM CHLORIDE 0.9% FLUSH 10 ML FLUSH IV FLUSH SCH (21:00)
[2016-12-21] MEDS: DOCUSATE SODIUM 50 MG/SENNA 8.6 MG TAB PO SCH (22:03)
[2016-12-22 07:47] LABS: AUTOMATED NEUTROPHIL # 4.3 TH/MM3 (1.8-7.7); BASOPHIL % 0.4 % (0.0-2.0); EOSINOPHIL # 0.1 TH/MM3 (0-0.4); EOSINOPHIL % 1.2 % (0.0-4.0); HEMATOCRIT 32.6 % (35.0-46.0); LYMPH % 24.5 % (9.0-44.0); LYMPHOCYTE # 1.5 TH/MM3 (1.0-4.8); MEAN CELL VOLUME 92.9 FL (80.0-100.0); MEAN CORPUSCULAR HEMOGLOBIN 30.1 PG (27.0-34.0); MEAN CORPUSCULAR HGB CONC 32.5 % (32.0-36.0); MONO % 4.3 % (0.0-8.0); NEUT % 69.6 % (16.0-70.0); PLATELET COUNT 99 TH/MM3 (150-450); RED BLOOD COUNT 3.51 MIL/MM3 (4.00-5.30); RED CELL DISTRIBUTION WIDTH 15.1 % (11.6-17.2); WHITE BLOOD COUNT 6.2 TH/MM3 (4.0-11.0)
[2016-12-22 07:49] LABS: HEMO FLAGS AUTO DIFF
[2016-12-22 07:56] VITALS: O2SAT 97
[2016-12-22 08:00] VITALS: BP 110/78; PULSE 75; RESP 18; TEMP 98.2; O2SAT 95
[2016-12-22 08:23] LABS: PLATELET ESTIMATE SMEAR LOW (NORMAL); PLATELET MORPHOLOGY NORMAL (NORMAL); SCAN/DIFF AUTO DIFF CONFIRMED
[2016-12-22 08:37] LABS: BICARBONATE 26.2 MEQ/L (21.0-32.0)
[2016-12-22] MEDS: DOCUSATE SODIUM 50 MG/SENNA 8.6 MG TAB PO SCH (09:00)
[2016-12-22] MEDS ORDERED: PANTOPRAZOLE SOD 20 MG DELAYED RELEASE TAB PO SCH (09:00)
[2016-12-22] MEDS: SODIUM CHLORIDE 0.9% FLUSH 10 ML FLUSH IV FLUSH SCH (09:17)
--- NOTE | 2016-12-22 09:20 | HHI.PR ---
Subjective Remarks Feels much better , tolerated CLD will advance diet as tolerated. No fever or chills. K still low. but able to keep down some food. Less nausea and vomiting. No fever or chills. Able to swallow. No abdominal pain. No diarrhea. Objective Vitals Vital Signs Date Time Temp Pulse Resp B/P (MAP) Pulse Ox O2 Delivery O2 Flow Rate FiO2 12/22/16 08:00 98.2 75 18 110/78 (89) 95 12/22/16 07:56 97 21 12/21/16 19:50 99.0 62 20 95/53 (67) 100 12/21/16 19:50 100 21 12/21/16 17:15 12/21/16 16:47 56 17 98 Room Air 12/21/16 14:42 74 18 107/65 (79) 100 Room Air 12/21/16 12:40 100 12/21/16 12:19 62 18 117/62 (80) 98 Room Air 12/21/16 12:05 97.9 65 22 99 I/O 12/21/16 12/21/16 12/21/16 12/22/16 12/22/16 12/22/16 07:00 15:00 23:00 07:00 15:00 23:00 Intake Total 2000 ml 190 ml 240 ml Balance 2000 ml 190 ml 240 ml Intake Oral 240 ml IV Total 2000 ml 190 ml # Voids 2 Result Diagram: 12/22/16 0645 12/22/16 0645 Imaging Last Impressions Abdomen/Pelvis CT 12/21/16 1219 Signed Impressions: Service Date/Time: Wednesday, December 21, 2016 12:46 - CONCLUSION: Negative. I don't see an etiology for the left lower quadrant pain Lee Rivas MD FACR Objective Remarks GENERAL: Well-developed, well-nourished, in no acute distress. alert and orientated CARDIAC: Regular rhythm, regular rate. S1/S2 are heard. No murmurs gallops or rubs. LUNGS: Clear to auscultation bilaterally. No wheeze, rhonchi or rales. No use of accessory muscles on inspiration or expiration. ABDOMEN: Soft, nondistended. Bowel sounds heard in all 4 quadrants. No organomegaly or masses. Negative rebound, no guarding. EXTREMITIES: No edema, pulses are equal bilaterally. No cyanosis or clubbing NEUROLOGY: Mood and affect appear appropriate. Cranial nerves II through XII grossly intact. Muscle strength 5/5 in upper and lower extremities bilaterally. Deep tendon reflexes are 2+ in upper and lower extremities bilaterally. A/P Problem List: (1) Intractable vomiting ICD Code: R11.10 - Intractable vomiting Status: Acute Assessment and Plan Nausea, vomiting, intractable, recurrent. Resolving Etiology unclear, could be secondary marijuana use, possible abdominal migraine Change IV fluids to 0.45 Na CL with 20 mEq KCl as persistent low KCl Continue Zofran, Reglan as needed Continue clear liquid diet, advance diet as tolerated Thrombocytopenia, appears to be chronic Continue monitor Hypokalemia, persistent 2/2 vomiting and decreased PO intake. KCl PO 60 mEq. Will add KCL to fluids if can't tolerate PO . Check mag and phos. Monitor and replace lytes as need. Anemia: HGB dropped from 13 to 10, likely is patient baseline hgb as patient received IVF and also PO fluids. Will check iron studies, ferritin, B12 and folate. Monitor H/H . No signs of overt bleeding. DVT prevention Low risk, early ambulation DC: plan to DC later today if tolerates food and no more n/v Discharge Planning Dc home in stable condition To follow up as OP with PCP and consultants. Diet : regular diet as tolerated Activity ad rosalva as tolerated Meds per med reconciliations Darlin Alicia MD Dec 22, 2016 09:20
[2016-12-22] MEDS ORDERED: 1/2 NS + KCL 20 MEQ INJ 1,000 ML IV SCH (09:30)
[2016-12-22 09:46] LABS: MAGNESIUM 1.8 MG/DL (1.5-2.5)
[2016-12-22] MEDS ORDERED: INFLUENZA VIRUS VACCINE (QUADRIVALENT) 0.5 ML SYR IM ONE (10:00)
[2016-12-22] MEDS ORDERED: POTASSIUM CHLORIDE 20 MEQ CONTROLLED RELEASE TAB PO ONE (10:00)
[2016-12-22] MEDS ORDERED: PNEUMOCOCCAL POLYVALENT INJ 25 MCG/0.5 ML SYR IM ONE (10:00)
[2016-12-22 11:36] LABS: FERRITIN 19 NG/ML (8-252); TRANSFERRIN IRON PROFILE 217 MG/DL (200-360)
[2016-12-22] MEDS ORDERED: NYSTATIN SUSP 500,000 U/5 ML CUP SWISH-SWAL SCH (13:00)
[2016-12-22] MEDS ORDERED: NYST1000 SWISH-SWAL (13:17)
[2016-12-22] MEDS ORDERED: PANT40TA3 PO (13:17)
[2016-12-22] MEDS ORDERED: RANI150T PO (13:17)
[2016-12-22] MEDS ORDERED: ZOFR4TAB PO (13:17)
[2016-12-22] MEDS ORDERED: [UNRECOGNIZED DRUG - CODE] PO (13:17)
--- NOTE | 2016-12-22 13:17 | HHI.DCPOC ---
Discharge Care Plan Diagnosis: (1) Nausea & vomiting Goals to Promote Your Health * To prevent worsening of your condition and complications * To maintain your health at the optimal level Directions to Meet Your Goals Take your medications as prescribed Follow your dietary instruction Follow activity as directed Keep your appointments as scheduled Take your immunizations and boosters as scheduled If your symptoms worsen call your PCP, if no PCP go to Urgent Care Center or Emergency Room Smoking is Dangerous to Your Health. Avoid second hand smoke Call the 24-hour hour crisis hotline for domestic abuse at Colt Kinney Dec 22, 2016 13:17
== END 2016-12-22 14:07 | disposition home or self-care (01) ==
LOC: PHED 12:02 → PHEDA 14:53 → PH5A 17:58
PROVIDERS: ADMIT Hospitalist; ATTEND Hospitalist
DX: R11.2 Nausea with vomiting, unspecified (principal); K29.00 Acute gastritis without bleeding; R10.13 Epigastric pain; D69.6 Thrombocytopenia, unspecified; D64.9 Anemia, unspecified; F12.90 Cannabis use, unspecified, uncomplicated; F17.210 Nicotine dependence, cigarettes, uncomplicated; Z23 Encounter for immunization
CPT/HCPCS: 74176; 80048; 80053; 82607; 82728; 82746; 83540; 83550; 83605; 83690; 83735; 84100; 85025; 90471; 90472; 90686; 90732; 96361; 96365; 96366; 96372; 96375; 99285; G0378; J0780; J1200; J2270; J2405; J3480; J7030; G0008; G0009; Q2038

== ENCOUNTER 2017-08-08 05:00 | Emergency (ER) | payer MEDICAID ==
[~2017-08-08] VITALS: Ht 162.6 cm; Wt 57.7 kg
[~2017-08-08 05:00] MED LIST changes: +CETI1TAB PO; -CIPR0.3S RIGHT EAR; -NICO21DI25 T-DERMAL; +NYST1000 SWISH-SWAL; -[UNRECOGNIZED DRUG - CODE] PO
[2017-08-08 05:07] VITALS: BP 94/54; PULSE 77; RESP 18; TEMP 97.8; O2SAT 98
[2017-08-08 05:20] VITALS: BP 94/54; PULSE 77; RESP 18; TEMP 97.8
[2017-08-08] MEDS ORDERED: SODIUM CHLOR 0.9% 1000 ML INJ 1,000 ML IV SCH (05:20)
--- NOTE | 2017-08-08 05:24 | PD ---
HPI Chief Complaint: vomiting Time Seen by Provider: 05:20 Travel History International Travel<30 days: No Contact w/Intl Traveler<30days: No Traveled to known affect area: No History of Present Illness HPI 32-year-old female presents to the emergency department by private transportation for complaint of multiple episodes of vomiting since 7:30 PM. No reported hematemesis coffee-ground emesis or bilious emesis. No report of diarrhea melena or hematochezia. Patient has crampy abdominal pain. Patient has had similar symptoms in the past. Patient's had multiple evaluations for same complaint does not know her diagnosis. Patient is unable to identify exacerbating or alleviating factors. Patient denies well water ingestion foreign travel or dietary indiscretion. No other family members similar symptoms. Patient denies fever chills. Patient rates overall abdomen discomfort /. PFSH Past Medical History Narrative Medical Arthritis anxiety gastroparesis intestinal migraine UTI Arthritis: Yes (Knees, Ankle, Wrist, and Shoulder) Anxiety: Yes Cancer: No Cardiovascular Problems: No Diminished Hearing: No Endocrine: No Gastrointestinal Disorders: Yes Genitourinary: Yes Immune Disorder: No Musculoskeletal: No Neurologic: No Psychiatric: Yes Reproductive: No Respiratory: No Immunizations Current: Yes Migraines: Yes : 4 Para: 4 Miscarriage: 0 : 0 Tubal Ligation: Yes (DEC 24, 2008) Past Surgical History Abdominal Surgery: No Cardiac Surgery: No Section: Yes (X2) Ear Surgery: No Endocrine Surgery: No Eye Surgery: No Genitourinary Surgery: No Gynecologic Surgery: Yes (2 C-Sections, Tubal Ligation ) Oral Surgery: No Thoracic Surgery: No Other Surgery: Yes (c section) Social History Alcohol Use: No Tobacco Use: Yes (1ppd) Substance Use: Yes (Marjunia x 6 days per week) Allergies-Medications (Allergen,Severity, Reaction): Coded Allergies: No Known Allergies (Verified Adverse Reaction, Unknown, 08/08/17) Reported Meds & Prescriptions Reported Meds & Active Scripts Active Zofran (Ondansetron HCl) 4 Mg Tab 4 Mg PO Q6HR PRN Review of Systems Except as stated in HPI: all other systems reviewed are Neg General / Constitutional: No: Fever, Chills HENT: No: Congestion Cardiovascular: No: Chest Pain or Discomfort Respiratory: No: Shortness of Breath Gastrointestinal: Positive: Nausea, Vomiting, Abdominal Pain Genitourinary: Positive: Decreased Urinary Output, No: Dysuria Musculoskeletal: No: Myalgias, Arthralgias Skin: No Rash Neurologic: No: Weakness Psychiatric: No: Anxiety Hematologic/Lymphatic: No: Lymph Node Enlargement Physical Exam Narrative GENERAL: Well-developed well nourished female in no acute distress or respiratory distress mildly ill-appearing SKIN: Warm and dry. HEAD: Normocephalic. EYES: No scleral icterus. No injection or drainage. NECK: Supple, trachea midline. No JVD or lymphadenopathy. CARDIOVASCULAR: Regular rate and rhythm without murmurs, gallops, or rubs. RESPIRATORY: Breath sounds equal bilaterally. No accessory muscle use. GASTROINTESTINAL: Abdomen soft, mildly diffusely tender, nondistended. No guarding or rebound. MUSCULOSKELETAL: No cyanosis, or edema. BACK: Nontender without obvious deformity. No CVA tenderness. Data Data Last Documented VS Vital Signs Date Time Temp Pulse Resp B/P (MAP) Pulse Ox O2 Delivery O2 Flow Rate FiO2 08/08/17 05:27 18 08/08/17 05:20 97.8 77 94/54 (67) 08/08/17 05:07 98 Orders Orders Complete Blood Count With Diff (08/08/17 05:20) Comprehensive Metabolic Panel (08/08/17 05:20) Lipase (08/08/17 05:20) Urinalysis - C+S If Indicated (08/08/17 05:20) Iv Access Insert/Monitor (08/08/17 05:20) Ecg Monitoring (08/08/17 05:20) Oximetry (08/08/17 05:20) Sodium Chlor 0.9% 1000 Ml Inj (Ns 1000 M (08/08/17 05:20) Sodium Chloride 0.9% Flush (Ns Flush) (08/08/17 05:30) Ed Urine Pregnancytest Poc (08/08/17 05:20) Pantoprazole Inj (Protonix Inj) (08/08/17 05:30) Metoclopramide Inj (Reglan Inj) (08/08/17 05:30) Urine Culture (08/08/17 05:20) Ceftriaxone Inj (Rocephin Inj) (08/08/17 05:45) Chest, Single Ap (08/08/17 ) Diphenhydramine Inj (Benadryl Inj) (08/08/17 06:15) Labs Laboratory Tests Test 08/08/17 05:20 White Blood Count 8.6 TH/MM3 Red Blood Count 4.93 MIL/MM3 Hemoglobin 13.9 GM/DL Hematocrit 43.3 % Mean Corpuscular Volume 87.7 FL Mean Corpuscular Hemoglobin 28.1 PG Mean Corpuscular Hemoglobin Concent 32.1 % Red Cell Distribution Width 14.1 % Platelet Count 206 TH/MM3 Mean Platelet Volume 10.0 FL Neutrophils (%) (Auto) 74.4 % Lymphocytes (%) (Auto) 19.4 % Monocytes (%) (Auto) 4.7 % Eosinophils (%) (Auto) 0.4 % Basophils (%) (Auto) 1.1 % Neutrophils # (Auto) 6.4 TH/MM3 Lymphocytes # (Auto) 1.7 TH/MM3 Monocytes # (Auto) 0.4 TH/MM3 Eosinophils # (Auto) 0.0 TH/MM3 Basophils # (Auto) 0.1 TH/MM3 CBC Comment DIFF FINAL Differential Comment Urine Color YELLOW Urine Turbidity SL CLOUDY Urine pH 6.0 Urine Specific [place] 1.025 Urine Protein 30 mg/dL Urine Glucose (UA) NEG mg/dL Urine Ketones NEG mg/dL Urine Occult Blood MOD Urine Nitrite POS Urine Bilirubin NEG Urine Urobilinogen 0.2 MG/DL Urine Leukocyte Esterase TRACE Urine RBC 10-14 /hpf Urine WBC 25-49 /hpf Urine WBC Clumps FEW Urine Squamous Epithelial Cells 6-8 /hpf Urine Bacteria MANY /hpf Microscopic Urinalysis Comment CULTURE INDICATED Blood Urea Nitrogen 5 MG/DL Creatinine 0.81 MG/DL Random Glucose 91 MG/DL Total Protein 8.2 GM/DL Albumin 4.3 GM/DL Calcium Level 9.1 MG/DL Alkaline Phosphatase 105 U/L Aspartate Amino Transf (AST/SGOT) 14 U/L Alanine Aminotransferase (ALT/SGPT) 22 U/L Total Bilirubin 0.7 MG/DL Sodium Level 138 MEQ/L Potassium Level 3.3 MEQ/L Chloride Level 103 MEQ/L Carbon Dioxide Level 30.2 MEQ/L Anion Gap 5 MEQ/L Estimat Glomerular Filtration Rate 83 ML/MIN Lipase 257 U/L MDM Medical Decision Making Medical Screen Exam Complete: Yes Emergency Medical Condition: Yes Medical Record Reviewed: Yes Interpretation(s) CBC & BMP Diagram 08/08/17 05:20 Total Protein 8.2, Albumin 4.3, Calcium Level 9.1, Alkaline Phosphatase 105, Aspartate Amino Transf (AST/SGOT) 14 L, Alanine Aminotransferase (ALT/SGPT) 22, Total Bilirubin 0.7 Vital Signs Date Time Temp Pulse Resp B/P (MAP) Pulse Ox O2 Delivery O2 Flow Rate FiO2 08/08/17 05:27 18 08/08/17 05:20 97.8 77 18 94/54 (67) 08/08/17 05:07 97.8 77 18 94/54 (67) 98 Vital Signs Date Time Temp Pulse Resp B/P (MAP) Pulse Ox O2 Delivery O2 Flow Rate FiO2 08/08/17 05:27 18 08/08/17 05:20 97.8 77 18 94/54 (67) 08/08/17 05:07 97.8 77 18 94/54 (67) 98 UA: Positive nitrites positive white blood cells positive clumped white blood cells point poc hcg: negative Differential Diagnosis Gastroenteritis intractable vomiting dehydration electrolyte disturbance arrhythmia UTI Narrative Course IV access obtained specimens collections of resulting patient administered Reglan and liter of normal saline; poc hcg: negative Urinalysis is found to be markedly abnormal with positive nitrites leukocyte esterase bacteria red blood cells and patient administered Rocephin 1 g IV piggyback cbc/cmp grossly wnl except mild hypokalemia patient notes feels slightly anxious after reglan --benadryl administered patient reports desirous of being discharged home --provicded RX for macrobid and zofran odt; also encouraged to take additional dose of benadryl as needed for mild adverse response to reglan; patient with spouse/significant other acknowledges diagnosis vomiting is under control and aware of mild adverse sensitivity/reaction to Reglan with improvement of symptoms after receiving Benadryl. Patient is stable for outpatient management and follow-up with her primary care provider. Diagnosis Primary Impression: Gastroenteritis Additional Impressions: UTI (urinary tract infection) Qualified Codes: N39.0 - Urinary tract infection, site not specified Adverse drug reaction Qualified Codes: T88.7XXA - Unspecified adverse effect of drug or medicament, initial encounter Referrals: Primary Care Physician call for appointment Patient Instructions: General Instructions Departure Forms: Tests/Procedures, Work Release Special Instructions: no work x 1 day Additional Instructions: Increase fluid hydration Follow clear liquid diet for next 12-24 hours then to advance to bland diet then to advance to regular diet avoiding fried and fatty foods Monitor temperature for us with the monitor for fever 100.4F or greater Complete course of antibiotic as prescribed Take Zofran as prescribed as needed for nausea and/or vomiting Take Benadryl per package directions as needed for nasal congestion and rhinorrhea or nausea or anxiety/agitation. Return to the Emergency department for any concerns or change in condition Med/Other Pt SpecificInfo: Prescription(s) given Scripts Ondansetron Odt (Zofran Odt) 4 Mg Tab 4 MG SL Q6HR Y for Nausea/Vomiting, #10 TAB 0 Refills Prov: Emily Salvador MD 08/08/17 Nitrofurantoin Monohydrate Macrocrystals (Macrobid) 100 Mg Cap 100 MG PO BID for Infection for 7 Days, #14 CAP 0 Refills Prov: Emily Salvador MD 08/08/17 Disposition: 01 DISCHARGE HOME Condition: Stable Emily Salvador MD August 08, 2017 05:24
[2017-08-08 05:26] VITALS: PULSE 62; RESP 18; O2SAT 100
[2017-08-08] MEDS ORDERED: SODIUM CHLORIDE 0.9% FLUSH 10 ML FLUSH IV FLUSH PRN (05:30)
[2017-08-08] MEDS ORDERED: PANTOPRAZOLE SODIUM 40 MG VIAL IV PUSH ONE (05:30)
[2017-08-08] MEDS ORDERED: METOCLOPRAMIDE HCL 10 MG/2 ML VIAL IV PUSH ONE (05:30)
[2017-08-08 05:33] LABS: BILIRUBIN, URINE NEG (NEG); BLOOD, URINE MOD (NEG); GLUCOSE,URINE NEG (NEG); KETONE, URINE NEG (NEG); NITRITE,URINE POS (NEG); URINE COLOR YELLOW (YELLW/STRAW); URINE LEUKOCYTE ESTERASE TRACE (NEG)
[2017-08-08 05:34] LABS: AUTOMATED NEUTROPHIL # 6.4 TH/MM3 (1.8-7.7); BASOPHIL # 0.1 TH/MM3 (0-0.2); BASOPHIL % 1.1 % (0.0-2.0); EOSINOPHIL % 0.4 % (0.0-4.0); HEMATOCRIT 43.3 % (35.0-46.0); HEMOGLOBIN 13.9 GM/DL (11.6-15.3); LYMPH % 19.4 % (9.0-44.0); LYMPHOCYTE # 1.7 TH/MM3 (1.0-4.8); MEAN CELL VOLUME 87.7 FL (80.0-100.0); MEAN CORPUSCULAR HEMOGLOBIN 28.1 PG (27.0-34.0); MEAN CORPUSCULAR HGB CONC 32.1 % (32.0-36.0); MONO % 4.7 % (0.0-8.0); MONOCYTE # 0.4 TH/MM3 (0-0.9); NEUT % 74.4 % (16.0-70.0); PLATELET COUNT 206 TH/MM3 (150-450); RED BLOOD COUNT 4.93 MIL/MM3 (4.00-5.30); RED CELL DISTRIBUTION WIDTH 14.1 % (11.6-17.2); WHITE BLOOD COUNT 8.6 TH/MM3 (4.0-11.0)
[2017-08-08 05:39] LABS: BACTERIA, URINE MANY /hpf; WHITE BLOOD CELL CLUMPS FEW
[2017-08-08 05:41] LABS: CHLORIDE 103 MEQ/L (98-107); SODIUM (NA) 138 MEQ/L (136-145)
[2017-08-08 05:44] LABS: CALCIUM 9.1 MG/DL (8.5-10.1)
[2017-08-08 05:45] LABS: ALBUMIN 4.3 GM/DL (3.4-5.0); BICARBONATE 30.2 MEQ/L (21.0-32.0); BLOOD UREA NITROGEN 5 MG/DL (7-18); GLUCOSE,RANDOM 91 MG/DL (74-106)
[2017-08-08] MEDS ORDERED: cefTRIAXone INJ 1,000 MG in SODIUM CHLORIDE 0.9% INJ 100 ML IV ONE (05:45)
[2017-08-08 05:47] LABS: ALT (GPT) 22 U/L (10-53)
[2017-08-08 05:48] LABS: AST (GOT) 14 U/L (15-37); CREATININE 0.81 MG/DL (0.50-1.00); GLOMERULAR FILTRATION RATE 83 ML/MIN (>89)
[2017-08-08 05:49] LABS: TOTAL BILIRUBIN ADULT 0.7 MG/DL (0.2-1.0); TOTAL PROTEIN 8.2 GM/DL (6.4-8.2)
[2017-08-08 05:50] LABS: ALKALINE PHOSPHATASE 105 U/L (45-117)
[2017-08-08 06:10] VITALS: BP 102/52
[2017-08-08] MEDS ORDERED: MACR100C2 PO (06:14)
[2017-08-08] MEDS ORDERED: ZOFR4TAB3 SL (06:14)
[2017-08-08] MEDS ORDERED: diphenhydrAMINE HCL 50 MG/ML VIAL IV PUSH ONE (06:15)
== END 2017-08-08 06:20 | disposition home or self-care (01) ==
LOC: PHED 05:00
DX: K52.9 Noninfective gastroenteritis and colitis, unspecified (principal); N39.0 Urinary tract infection, site not specified; B96.1 Klebsiella pneumoniae [K. pneumoniae] as the cause of diseases classified elsewhere; T45.0X5A Adverse effect of antiallergic and antiemetic drugs, initial encounter; Y92.238 Other place in hospital as the place of occurrence of the external cause; E87.6 Hypokalemia; F41.9 Anxiety disorder, unspecified; F12.90 Cannabis use, unspecified, uncomplicated; Z72.0 Tobacco use
CPT/HCPCS: 80053; 81001; 83690; 84703; 85025; 87077; 87086; 87186; 96374; 96375; 99284; C9113; J0696; J1200; J2765; J7030